=== PATIENT | male | born 1940 | race Caucasian/White ===

== ENCOUNTER → 2017-10-14 13:22 | Outpatient (CLI) | payer MEDICARE, SELFPAY | PROVIDERS: PCP Family Medicine; Visit Provider Urology | DX: C61 Malignant neoplasm of prostate (principal) | CPT/HCPCS: 36415; 84153 ==

== ENCOUNTER → 2018-01-20 09:52 | Outpatient (CLI) | payer MEDICARE, SELFPAY ==
[2018-01-20 11:18] LABS: Testosterone 15.2 ng/dL (71.8-623)
== END ==
PROVIDERS: PCP Family Medicine; Visit Provider Urology
DX: C61 Malignant neoplasm of prostate (principal)
CPT/HCPCS: 36415; 84153; 84403

== ENCOUNTER → 2018-02-06 10:12 | Outpatient (CLI) | payer MEDICARE, SELFPAY ==
--- NOTE | 2018-02-06 | DI.RAD.S_ITS ---
PROCEDURE: XR CERVICAL SPINE 4V OR 5V INDICATIONS: NECK PAIN TECHNIQUE: 5 views of the cervical spine were acquired. COMPARISON: None. FINDINGS: Bones: No fractures or dislocations to the C7 level. Mild levocurvature. Diffuse facet arthropathy. Moderate narrowing of the C5-C6 and C6-C7 disc spaces. No suspicious bony lesions. There is limited range of motion between flexion and extension however no evidence of abnormal motion Soft tissues: Prevertebral soft tissues are normal in thickness. IMPRESSION: Multilevel mid to lower cervical disc degeneration and diffuse facet arthropathy, most pronounced from C5-C6 and C6-C7. No evidence of abnormal motion with flexion and extension lateral views. Mild levocurvature. Dictated by: Kenneth Del Real M.D. on 02/06/2018 at 13:47 Approved by: Kenneth Del Real M.D. on 02/06/2018 at 13:49
== END ==
PROVIDERS: PCP Student in an Organized Health Care Education/Training Program; Visit Provider Anesthesiology Pain Medicine
DX: M50.322 Other cervical disc degeneration at C5-C6 level (principal); M47.812 Spondylosis without myelopathy or radiculopathy, cervical region
CPT/HCPCS: 72050

== ENCOUNTER → 2018-03-14 08:25 | Outpatient (CLI) | payer MEDICARE, SELFPAY ==
--- NOTE | 2018-03-14 08:26 | DI.US.S_ITS ---
PROCEDURE: US ABD AORTA ANEURYSM SCREEN INDICATIONS: AAA screen TECHNIQUE: Real time scanning was performed of the aorta and iliac arteries, with image documentation. COMPARISON: None. FINDINGS: Aorta: Proximal aortic diameter measures 2.2 cm. Mid-aorta measures 1.7 cm. Distal aortic diameter is 2.8 cm. Iliac arteries: Right common iliac artery measures 1.1 cm. Left common iliac artery measures 1.2 cm. IMPRESSION: Ectasia of the distal abdominal aorta. 5 year followup recommended. Dictated by: Rajiv FLORES Interpreted: Ciarra Foley MD on 03/14/2018 at 10:10 Approved by: Ciarra Foley M.D. on 03/14/2018 at 11:44
== END ==
PROVIDERS: PCP Student in an Organized Health Care Education/Training Program; Visit Provider Student in an Organized Health Care Education/Training Program
DX: Z13.6 Encounter for screening for cardiovascular disorders (principal); I77.811 Abdominal aortic ectasia; Z87.891 Personal history of nicotine dependence
CPT/HCPCS: 76706

== ENCOUNTER → 2018-07-21 08:12 | Outpatient (CLI) | payer MEDICARE, SELFPAY ==
[2018-07-21 09:24] LABS: Alanine Aminotransferase 26 IU/L (21-72); Albumin 3.9 g/dL (3.5-5.0); Albumin Globulin Ratio 1.4 (1.0-2.8); Alkaline Phosphatase 80 U/L (38-126); Aspartate Aminotransferase 21 IU/L (17-59); BUN Creatinine Ratio 12.2 (6-22); Bilirubin Total 0.3 mg/dL (0.2-1.3); Blood Urea Nitrogen 11 mg/dL (9-20); Carbon Dioxide 25 mmol/L (22-32); Chloride 105 mmol/L (98-107); Cholesterol 201 mg/dL (140-199); Estimated Glomerular Filt Rate > 60.0 mL/min (>60); Globulin 2.8 g/dL (1.7-4.1); Glucose 92 mg/dL (80-110); HDL Cholesterol 26 mg/dL (40-60); HEMOLYSIS < 15 (0-50); LDL Cholesterol Calculated 98 mg/dL (<100); Sodium 139 mmol/L (137-145); Total Protein 6.7 g/dL (6.3-8.2); Triglycerides 387 mg/dL (35-150)
[2018-07-21 09:47] LABS: Thyroid Stimulating Hormone 0.95 uIU/mL (0.47-4.68)
== END ==
PROVIDERS: Family Provider Student in an Organized Health Care Education/Training Program; PCP Student in an Organized Health Care Education/Training Program; Visit Provider Internal Medicine Cardiovascular Disease
DX: I10 Essential (primary) hypertension (principal); E78.2 Mixed hyperlipidemia
CPT/HCPCS: 36415; 80053; 80061; 84443

== ENCOUNTER → 2018-07-25 07:58 | Outpatient (CLI) | payer MEDICARE, SELFPAY ==
--- NOTE | 2018-07-25 08:00 | DI.US.S_ITS ---
PROCEDURE: US ARTERIAL DUPLEX LE BI INDICATIONS: PERIPHERAL ARTERY DISEASE. RIGHT FEMORAL-POPLITEAL BYPASS TECHNIQUE: Color and pulse Doppler interrogation was performed of both lower extremity arterial systems, with image documentation. COMPARISON: None. FINDINGS: Right lower extremity: Common femoral artery: 82 cm/sec, with biphasic flow. Deep femoral artery: 112 cm/sec, with biphasic flow. Proximal superficial femoral artery: 39 cm/sec, with monophasic flow. Mid superficial femoral artery: 50 cm/sec, with monophasic flow. Distal superficial femoral artery: 48 cm/sec, with monophasic flow proximal to distal SFA stent, which is occluded. Popliteal artery: Retrograde flow proximal to the femoropopliteal bypass graft Posterior tibial artery: 25 cm/sec, with biphasic flow. Occludes above ankle Anterior tibial artery/dorsalis pedis: 58 cm/sec, with biphasic flow. Femoropopliteal bypass graft: Widely patent with triphasic flow Landsi-scale imaging description: See femoropopliteal bypass graft is widely patent. There is excellent flow to the ankle through the anterior tibial artery. The posterior tibial artery occludes above the ankle. The [place] SFA has dampened flow to the level of an occluded distal SFA stent. Left lower extremity: Common femoral artery: 73 cm/sec, with biphasic flow. Deep femoral artery: 91 cm/sec, with biphasic flow. Proximal superficial femoral artery: 67 cm/sec, with increased to 153 cm/s, indicating a greater than 50% stenosis, with biphasic flow. Mid superficial femoral artery: 100 cm/sec, with biphasic flow. Distal superficial femoral artery: 65 cm/sec, with biphasic flow. Popliteal artery: 43 cm/sec, with biphasic flow. Posterior tibial artery: 19 cm/sec, with biphasic flow. Occludes above the ankle. Anterior tibial artery/dorsalis pedis: 23 cm/sec, with biphasic flow. Landis-scale imaging description: There is a greater than 50% proximal SFA stenosis. The posterior tibial is occluded above the ankle. The anterior tibial is patent throughout. IMPRESSION: 1. Right lower extremity runoff: No evidence of significant inflow stenosis. Negative SFA occludes at the distal thigh at the level of an occluded stent. Femoropopliteal bypass graft is widely patent. The anterior tibial is widely patent to feed the foot. The posterior tibial occludes above the ankle. 2. Left lower extremity runoff: No evidence of significant inflow stenosis. Greater than 50% proximal SFA stenosis. Patent anterior tibial to feed the foot. Posterior tibial occludes above the ankle. Comment: If this patient has significant lifestyle limiting left calf claudication the Interventional Radiologists (doctors Zora Cordero, and Michele) at [facility] would be happy to see this patient in consultation. This could be scheduled through [facility] diagnostic imaging scheduling service to consider percutaneous treatment. Dictated by: Ricco Bautista M.D. on 07/25/2018 at 17:01 Approved by: Ricco Bautista M.D. on 07/25/2018 at 17:17
--- NOTE | 2018-07-25 10:01 | DI.US.S_ITS ---
PROCEDURE: US RETROPERITONEAL COMP INDICATIONS: FOLLOW UP ABDOMINAL AORTIC ANEURYSM SCREENING 2017 TECHNIQUE: Real-time scanning was performed of the aorta, with image documentation. COMPARISON: None. FINDINGS: Aorta: Proximal abdominal aorta measures 2.3 cm in AP diameter. Midabdominal aorta measures 2.1 cm in AP diameter. Distal abdominal aorta measures 3 x 3.4 cm in its largest AP and transverse diameters compared to 2.8 x 3.5 cm on previous study. This involves distal 3.9 cm segment of infrarenal abdominal aorta. Intramural thrombus within the distal abdominal aorta is seen. No periaortic fluid collection. Iliac arteries: Proximal common iliac arteries are normal in caliber at 2.5 cm or less. IMPRESSION: Fusiform infrarenal abdominal aortic aneurysm measures up to 3 cm in largest AP diameter on the current study, slightly increased since 2.8 cm on previous study. Intramural thrombus within the aneurysmal sac is seen. No evidence of rupture. Dictated by: Jose F Teague M.D. on 07/25/2018 at 12:48 Approved by: Jose F Teague M.D. on 07/25/2018 at 12:50
== END ==
LOC: US 08:00
PROVIDERS: Family Provider Student in an Organized Health Care Education/Training Program; PCP Student in an Organized Health Care Education/Training Program; Visit Provider Internal Medicine Cardiovascular Disease
DX: I71.4 Abdominal aortic aneurysm, without rupture (principal); C61 Malignant neoplasm of prostate; I70.401 Unspecified atherosclerosis of autologous vein bypass graft(s) of the extremities, right leg; I70.203 Unspecified atherosclerosis of native arteries of extremities, bilateral legs
CPT/HCPCS: 36415; 76770; 84153; 93925

== ENCOUNTER → 2018-07-25 10:20 | Outpatient (CLI) | payer MEDICARE, SELFPAY | PROVIDERS: Family Provider Student in an Organized Health Care Education/Training Program; PCP Student in an Organized Health Care Education/Training Program; Visit Provider Urology | DX: C61 Malignant neoplasm of prostate (principal) | CPT/HCPCS: 36415; 84153 ==

== ENCOUNTER → 2018-07-31 11:12 | Outpatient (CLI) | payer MEDICARE, SELFPAY ==
--- NOTE | 2018-07-31 | DI.CT.S_ITS ---
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 ELEVATED PSA, post prostatectomy 5 years ago. Recent PSA elevation. TECHNIQUE: After the administration of oral and intravenous contrast, 5 mm thick sections acquired from the diaphragms to the symphysis. 5 mm thick coronal and sagittal reformats were performed. For radiation dose reduction, the following was used: automated exposure control, adjustment of mA and/or kV according to patient size. COMPARISON: [facility], CT, ABDOMEN/PELVIS WITH CONTRAST, 09/28/2015, 9:46. FINDINGS: Image quality: Excellent. ABDOMEN: Lung bases: Lung bases are clear. Heart size is normal. Descending thoracic aorta is mildly aneurysmal measuring 3.2 cm in AP diameter. Solid organs: Liver is normal in size and enhancement. Gallbladder is normal. No intrahepatic biliary dilatation. The extrahepatic common duct is mildly dilated measuring 10 mm, but tapering to the pancreatic head. The main pancreatic duct is mildly dilated measuring up to 5 mm in the pancreatic head. Pancreas enhances normally. Occasional glandular calcifications. Spleen is normal in size and enhancement. No adrenal nodules. Kidneys are normal in size and enhancement, without hydronephrosis. Subcentimeter left medullary cyst. Peritoneum and bowel: Marked sigmoid diverticulosis. Mild descending colon diverticular disease. Stomach, small bowel, and colon loops are otherwise normal. No free fluid or air. Nodes and vessels: No retroperitoneal or mesenteric adenopathy. Mild mixed calcified and noncalcified abdominal aortic atherosclerosis. Fusiform distal abnormal aortic aneurysm measuring 3.2 cm in greatest AP diameter with eccentric noncalcified mural thrombus. Miscellaneous: No ventral hernias. PELVIS: Genitourinary: Surgical changes of prostatectomy. Beam hardening artifact from surgical clips. Given this limitation, no visible soft tissue masses along the pelvic floor. Decompressed urinary bladder without obvious mass. Miscellaneous: No inguinal hernias or adenopathy. Dilatation of the superficial femoral artery origins suggesting anastomosis site. There are overlying surgical changes. Bones: Interval development of a rounded mildly sclerotic lesion in the T11 vertebral body measuring 3.2 cm.. No vertebral body compression fractures. IMPRESSION: 1. Interval development of a rounded sclerotic bone lesion in T11. In the face of rising PSA, this is suspicious for metastatic disease. 2. Surgical changes of prostatectomy without visible soft tissue recurrence or soft tissue metastasis. 3. Interval development of mild extrahepatic biliary dilatation. This is nonspecific. Correlate with LFTs. 4. Mild, chronic pancreatic ductal dilatation and coarse glandular calcifications suggests chronic pancreatitis. 5. Enlargement of mild distal abdominal aortic aneurysm, now with a partial mural thrombus. Dictated by: Erika Malik M.D. on 07/31/2018 at 15:46 Approved by: Erika Malik M.D. on 07/31/2018 at 16:07
== END ==
PROVIDERS: Family Provider Student in an Organized Health Care Education/Training Program; PCP Student in an Organized Health Care Education/Training Program; Visit Provider Urology
DX: D49.59 Neoplasm of unspecified behavior of other genitourinary organ (principal); R97.21 Rising PSA following treatment for malignant neoplasm of prostate; M89.9 Disorder of bone, unspecified; K83.8 Other specified diseases of biliary tract; K86.89 Other specified diseases of pancreas; I71.4 Abdominal aortic aneurysm, without rupture
CPT/HCPCS: 74177; Q9967

== ENCOUNTER → 2018-08-05 08:42 | Outpatient (CLI) | payer MEDICARE, SELFPAY ==
--- NOTE | 2018-08-05 | DI.NM.S_ITS ---
PROCEDURE: TX BONE SCAN WHOLE BODY RADIOPHARMACEUTICAL: 20.90 mCi Tc-99m MDP IV. INDICATIONS: Neoplasm of unspecified behavior of other genitourinary the prostate cancer. TECHNIQUE: Delayed whole-body scintigrams were obtained approximately 3-4 hours after intravenous injection of radiotracer. Anterior and posterior views were acquired from vertex to feet. . COMPARISON: [facility], CT, CT ABDOMEN PELVIS W CON, 07/31/2018, 11:57. [facility], [place], BONE SCAN WHOLE BODY, 05/09/2016, 13:21. FINDINGS: Focus of intense radiotracer uptake noted in the T11 vertebral body concerning for metastatic disease. Relatively subtle radiotracer uptake noted in the lower cervical spine, and the shoulders bilaterally which is unchanged compared to prior examination and is compatible with osteoarthritis. No areas of photopenia identified in the osseous skeleton. No abnormal soft tissue uptake. Activity in kidneys is normal and symmetric. 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 Dictated by: Ariana Oconnor MD, PhD on 08/05/2018 at 14:03 Approved by: Ariana Oconnor MD, PhD on 08/05/2018 at 14:06
== END ==
PROVIDERS: Family Provider Student in an Organized Health Care Education/Training Program; PCP Student in an Organized Health Care Education/Training Program; Visit Provider Urology
DX: D49.59 Neoplasm of unspecified behavior of other genitourinary organ (principal); C79.51 Secondary malignant neoplasm of bone
CPT/HCPCS: 78306; A9503

== ENCOUNTER → 2018-10-22 06:52 | Outpatient (CLI) | payer MEDICARE, SELFPAY ==
[2018-10-22 08:56] LABS: Cholesterol 151 mg/dL (140-199); HDL Cholesterol 33 mg/dL (40-60); LDL Cholesterol Calculated 65 mg/dL (<100); Triglycerides 263 mg/dL (35-150)
== END ==
PROVIDERS: Family Provider Student in an Organized Health Care Education/Training Program; PCP Student in an Organized Health Care Education/Training Program; Visit Provider Internal Medicine Cardiovascular Disease
DX: E78.1 Pure hyperglyceridemia (principal)
CPT/HCPCS: 36415; 80061

== ENCOUNTER → 2018-12-03 12:05 | Outpatient (CLI) | payer MEDICARE, SELFPAY ==
[2018-12-03 12:13] LABS: Bacteria Urine None Seen
[2018-12-03 12:27] LABS: Appearance Urine UA CLEAR; Bilirubin Urine UA NEGATIVE (NEGATIVE); Color Urine UA YELLOW; Glucose Urine UA NEGATIVE (Negative); Ketones Urine UA NEGATIVE (NEGATIVE); Leukocyte Esterase Urine UA NEGATIVE (NEGATIVE); Nitrite Urine UA NEGATIVE (Negative); Occult Blood Urine UA TRACE-INTACT (Negative); Protein Urine UA NEGATIVE (Negative); Urobilinogen Urine UA 0.2 E.U./dL (0.2)
[2018-12-03 12:57] LABS: RBC Urine 1-5/HPF (0-5/HPF)
[2018-12-03 12:58] LABS: Culture Indicated Urine Cult Not Indicated; Squamous Epithelial Cell Urine 0-1 /HPF (0-5/HPF)
== END ==
PROVIDERS: PCP Student in an Organized Health Care Education/Training Program; Visit Provider Student in an Organized Health Care Education/Training Program
DX: N23 Unspecified renal colic (principal)
CPT/HCPCS: 81001

== ENCOUNTER 2018-12-28 04:41 | Emergency (ER) | payer MEDICARE, SELFPAY ==
[2018-12-28] VITALS (12 sets, daily range): BP systolic 130–189; BP diastolic 55–95; PULSE 53–80; RESP 15–22; O2SAT 95–100
--- NOTE | 2018-12-28 04:44 | ED_ITS ---
HPI - Allergic Reaction <Mimi Connolly DO - Last Filed: 12/28/18 07:13> General Chief complaint: Allergic Reaction Stated complaint: Swelling tongue Time Seen by Provider: 12/28/18 04:44 Source: patient Mode of arrival: ambulatory Limitations: no limitations History of Present Illness HPI narrative: 78-year-old male comes to the emergency department with complaint of swelling of his tongue. Patient states that he woke up this morning several minutes before he came in and noted the swelling. He has a little bit of difficulty with speech. He feels like there is a little bit underneath the tongue. Patient denies any swelling in the neck. He does take lisinopril, he has been taking for several years. He does not have any other medications other than he has been take leuprolide for prostate cancer. He states that he takes medication for blood pressure, prostate cancer to which he states was treated with radiation and prostatectomy, and states that he had a stent placed in his right leg. He takes aspirin daily. Patient denies any other surgeries. He denies any known allergies to medications or foods, denies any environmental allergies. Patient states that he does smoke. The patient drove himself today. Related Data Home Medications Medication Instructions Recorded Confirmed abiraterone 500 mg tablet 1,000 mg PO QAM 12/03/18 12/03/18 leuprolide (3 month) 11.25 mg (3 11.25 mg IM [id number] 12/03/18 month) intramuscular syringe kit Previous Rx's Medication Instructions Recorded hydrocodone 10 mg-acetaminophen 1 tab PO Q4H PRN #1 tab 03/03/18 325 mg tablet carvedilol 6.25 mg tablet 6.25 mg PO BID #180 tab 12/04/18 lisinopril 20 mg tablet 20 mg PO DAILY #90 tab 12/04/18 Allergies Allergy/AdvReac Type Severity Reaction Status Date / Time No Known Drug Allergies Allergy Verified 12/03/18 11:49 Review of Systems <DO Daisy Stewart Last Filed: 12/28/18 07:13> ENT Ears, Nose, Mouth, and Throat: Denies neck pain, Denies sore throat, Denies throat swelling and Reports tongue swelling Cardiovascular Cardiovascular: Denies chest pain, Denies syncope, Denies pedal edema, Denies irregular heart rhythm, Denies dyspnea and Denies dyspnea on exertion Respiratory Respiratory: Denies chest congestion, Denies cough, Denies dyspnea, Denies dyspnea on exertion, Denies stridor and Denies wheezing Gastrointestinal Gastrointestinal: Denies abdominal pain, Denies change in bowel habits, Denies diarrhea, Denies nausea and Denies vomiting Musculoskeletal Musculoskeletal: Denies neck pain Neurologic Neurologic: Denies syncope Allergic/Immunologic Allergic/Immunologic: Denies throat swelling, Reports tongue swelling and Denies wheezing PFSH <Mimi Connolly DO - Last Filed: 12/28/18 07:13> Medical History Essential hypertension (Chronic) Hyperlipidemia (Chronic) Peripheral vascular disease (Chronic) Prostate cancer (Resolved 2012) Vertigo (Chronic) Surgical History History of radical retropubic prostatectomy (Resolved 12/30/12) Family History (Updated 04/09/18 @ 14:48 by Gaviota Kennedy) Father Gastric cancer Mother Ruptured abdominal aortic aneurysm (AAA) Heart disease Arthritis Sister No problems noted. Sister Heart disease Sister Hepatitis C Son No problems noted. Daughter No problems noted. Daughter No problems noted. Daughter No problems noted. Grandfather Cancer Grandmother Cancer Grandfather Cancer Heart disease Grandmother Cancer Heart disease Social History Smoking Status: Current every day smoker alcohol intake: current (Socially) substance use type: does not use Family History Father Gastric cancer Mother Ruptured abdominal aortic aneurysm (AAA) Heart disease Arthritis Sister No problems noted. Sister Heart disease Sister Hepatitis C Son No problems noted. Daughter No problems noted. Daughter No problems noted. Daughter No problems noted. Grandfather Cancer Grandmother Cancer Grandfather Cancer Heart disease Grandmother Cancer Heart disease Social History Smoking Status: Current every day smoker alcohol intake: current (Socially) substance use type: does not use Exam <Mimi Connolly DO - Last Filed: 12/28/18 07:13> Narrative Exam Narrative: GEN: well nourished, well appearing male, alert and oriented x 3, patient appears to be in mild distress. HEENT: Atraumatic, pupils are equal round reactive to light, extraocular movements are intact, nares are clear, Throat is without any exudates, erythema, tonsillar enlargement or uvular deviation, patient has swelling particularly of the left side of his tongue. No swelling of the lips or inner cheeks noted. Patient has mildly disarthric speech, no muffled voice, no stridor. HEART: Regular rate and rhythm without murmur, clicks, rubs. LUNGS:Lungs clear to auscultation, no wheezes, rales, crackles, chest moves symmetrically ABD:bowel sounds normal, soft, non-tender, no guarding, rebound, rigidity, no masses noted, no hepatosplenomegaly MSCL: Non-tender, no muscle atrophy, muscles strength 5/5 upper and lower extremities, full range of motion, normal gait NEURO:CN 2-12 intact, sensation normal Initial Vital Signs Initial Vital Signs: Vital Signs Pulse Rate 76 12/28/18 04:43 Respiratory Rate 20 12/28/18 04:43 Blood Pressure 188/79 H 12/28/18 04:43 Pulse Oximetry 98 12/28/18 04:43 <Boni Juarez, DO - Last Filed: 12/28/18 07:59> Initial Vital Signs Initial Vital Signs: Vital Signs Pulse Rate 76 12/28/18 04:43 Respiratory Rate 20 12/28/18 04:43 Blood Pressure 188/79 H 12/28/18 04:43 Pulse Oximetry 98 12/28/18 04:43 Course <Mimi Connolly, DO - Last Filed: 12/28/18 07:13> Orders Ordered: Discontinued Medications Diphenhydramine HCl (Benadryl) 50 mg IV NOW ONE Stop: 12/28/18 04:45 Last Admin: 12/28/18 04:53 Dose: 50 mg Documented by: TONG Epinephrine (Epinephrine Racemic) 0.5 ml INH NOW ONE Stop: 12/28/18 05:30 Last Admin: 12/28/18 05:36 Dose: 0.5 ml Documented by: MELANIE Epinephrine HCl (Adrenalin) 0.5 mg IM NOW ONE Stop: 12/28/18 04:45 Last Admin: 12/28/18 04:51 Dose: 0.5 mg Documented by: TONG Famotidine (Pepcid) 20 mg in 50 mls @ 200 mls/hr IV NOW ONE Stop: 12/28/18 04:58 Last Infusion: 12/28/18 05:10 Dose: 0 mls/hr Documented by: Admin: 12/28/18 04:50 Dose: 200 mls/hr Documented by: TONG Sodium Chloride (Normal Saline 0.9%) 1,000 mls @ 1,000 mls/hr IV BOLUS ONE Stop: 12/28/18 05:43 Last Infusion: 12/28/18 06:02 Dose: 0 mls/hr Documented by: Admin: 12/28/18 04:50 Dose: 1,000 mls/hr Documented by: TONG Methylprednisolone (Solu-Medrol 125 Mg Vial) 125 mg IV NOW ONE Stop: 12/28/18 04:45 Last Admin: 12/28/18 04:53 Dose: 125 mg Documented by: TONG Vital Signs Vital signs: Vital Signs - 8 hr 12/28/18 04:43 12/28/18 05:24 12/28/18 05:32 Pulse Rate 76 75 70 Respiratory Rate 20 18 16 Blood Pressure 188/79 H Blood Pressure [Right Arm] 159/95 H 156/94 H Pulse Oximetry 98 100 99 12/28/18 05:34 12/28/18 05:38 12/28/18 05:42 Pulse Rate 71 53 L 75 Respiratory Rate 15 16 20 Blood Pressure Blood Pressure [Right Arm] 170/94 H 170/94 H Pulse Oximetry 100 99 100 12/28/18 05:50 12/28/18 06:00 12/28/18 06:17 Pulse Rate 75 71 78 Respiratory Rate 22 15 18 Blood Pressure Blood Pressure [Right Arm] 189/79 H 179/87 H 188/90 H Pulse Oximetry 98 98 98 12/28/18 06:31 12/28/18 06:56 Pulse Rate 75 80 Respiratory Rate 20 20 Blood Pressure Blood Pressure [Right Arm] 135/63 130/55 L Pulse Oximetry 95 98 <Boni Juarez DO - Last Filed: 12/28/18 07:59> Orders Ordered: Discontinued Medications Diphenhydramine HCl (Benadryl) 50 mg IV NOW ONE Stop: 12/28/18 04:45 Last Admin: 12/28/18 04:53 Dose: 50 mg Documented by: TONG Epinephrine (Epinephrine Racemic) 0.5 ml INH NOW ONE Stop: 12/28/18 05:30 Last Admin: 12/28/18 05:36 Dose: 0.5 ml Documented by: MELANIE Epinephrine HCl (Adrenalin) 0.5 mg IM NOW ONE Stop: 12/28/18 04:45 Last Admin: 12/28/18 04:51 Dose: 0.5 mg Documented by: TONG Famotidine (Pepcid) 20 mg in 50 mls @ 200 mls/hr IV NOW ONE Stop: 12/28/18 04:58 Last Infusion: 12/28/18 05:10 Dose: 0 mls/hr Documented by: Admin: 12/28/18 04:50 Dose: 200 mls/hr Documented by: TONG Sodium Chloride (Normal Saline 0.9%) 1,000 mls @ 1,000 mls/hr IV BOLUS ONE Stop: 12/28/18 05:43 Last Infusion: 12/28/18 06:02 Dose: 0 mls/hr Documented by: Admin: 12/28/18 04:50 Dose: 1,000 mls/hr Documented by: TONG Methylprednisolone (Solu-Medrol 125 Mg Vial) 125 mg IV NOW ONE Stop: 12/28/18 04:45 Last Admin: 12/28/18 04:53 Dose: 125 mg Documented by: TONG Vital Signs Vital signs: Vital Signs - 8 hr 12/28/18 04:43 12/28/18 05:24 12/28/18 05:32 Pulse Rate 76 75 70 Respiratory Rate 20 18 16 Blood Pressure 188/79 H Blood Pressure [Right Arm] 159/95 H 156/94 H Pulse Oximetry 98 100 99 12/28/18 05:34 12/28/18 05:38 12/28/18 05:42 Pulse Rate 71 53 L 75 Respiratory Rate 15 16 20 Blood Pressure Blood Pressure [Right Arm] 170/94 H 170/94 H Pulse Oximetry 100 99 100 12/28/18 05:50 12/28/18 06:00 12/28/18 06:17 Pulse Rate 75 71 78 Respiratory Rate 22 15 18 Blood Pressure Blood Pressure [Right Arm] 189/79 H 179/87 H 188/90 H Pulse Oximetry 98 98 98 12/28/18 06:31 12/28/18 06:56 Pulse Rate 75 80 Respiratory Rate 20 20 Blood Pressure Blood Pressure [Right Arm] 135/63 130/55 L Pulse Oximetry 95 98 [facility] - Allergic Reaction <Mimi C Mohsen, DO - Last Filed: 12/28/18 07:13> [facility] Narrative Medical decision making narrative: Patient received anaphylaxis medications and one dose of racemic epi, although suspect joan inhibitor induced angioedema, on recheck no improvement, no worsening. On recheck patient states feels mildly improved. He is not having any other airway difficulties at this time, no difficulties with swallowing. Patient and I discussed plan to monitor in ED if continued improvement may d/c home and stop lisinopril, if no improvement plan for admission for observation and if any worsening plan for intubation. Patient is comfortable with this plan, his Radha also called and is aware of the plan. Naomi his nurse was given 's phone number. Patient signed out to Dr. Juarez with plan to continue to monitor airway per plan above. <Boni Juarez, DO - Last Filed: 12/28/18 07:59> [facility] Narrative Medical decision making narrative: Dr Juarez: Received turned over from Dr Connolly. Reviewed patient's history and physical. The patient's note. Perform my own independent exam. Patient has been observed here in the emergency department for little over 3 hours. He has had no respiratory distress. He states that he feels like his symptoms are at least 50% better than when he came in and seemed to be improving even over the past hour. He is tolerating his own secretions. Has had no respiratory distress. Is tolerating oral intake however it is somewhat difficult for him to swallow. We did discuss his symptoms. I do suspect that his symptoms are angioedema secondary to the lisinopril. He was instructed to stop this medication. We did discuss discharge home versus being admitted to the hospital for an airway watch. Patient states that he feels like he can go home. He feels like that he would be able to maintain his hydration. 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 Given his history and physical I do suspect that this is angioedema so I feel that sending him home on a course of steroids is going to be somewhat unhelpful. We will discharge the patient home. He was given return precautions. He understands importance of coming back if his symptoms start to worsen. He will contact his primary doctor about his symptoms and to start on another medication for his blood pressure. Discharge Plan Departure Patient Disposition: Home Clinical Impression: Angioedema Qualifiers: Encounter type: initial encounter Qualified Code(s): T78.3XXA - Angioneurotic edema, initial encounter Instructions: DI for Angioedema Activity Restrictions/Additional Instructions: You need to stop the lisinopril. Contact your primary provider to discuss an alternative medication for your blood pressure. Continue all of your other medications. Return to the emergency department for any new or worsening symptoms. Prescriptions: No Action hydrocodone-acetaminophen 10-325 mg tablet 1 tab PO Q4H PRN (Reason: pain) Qty: 1 RF: 0 Zytiga 500 mg tablet 1,000 mg PO QAM RF: 0 Lupron Depot (3 month) 11.25 mg syringe kit 11.25 mg IM [id number] RF: 0 lisinopril 20 mg tablet 20 mg PO DAILY Qty: 90 RF: 3 carvedilol [Coreg] 6.25 mg tablet 6.25 mg PO BID Qty: 180 RF: 3 Referrals: Osorio Anaya MD [Primary Care Provider] - ED Sign-out <Mimi Connolly DO - Last Filed: 12/28/18 07:13> Sign Out Provider Sign Out Attestation: Patient Sign Out occurred on 12/28/18 at 07:06. Patient's care was discussed, and care was transferred from Mimi Connolly DO to Boni Juarez DO.
[2018-12-28] MEDS: SODIUM CHLORIDE 0.9% 1,000 ML 1000 ML IV (04:50)
[2018-12-28] MEDS: FAMOTIDINE 20 MG/50 ML PIGGYBACK 200 MG IV (04:50)
[2018-12-28] MEDS: EPINEPHrine 1 MG/ML AMPUL 0.5 MG IM (04:51)
[2018-12-28] MEDS: methylPREDNISolone 125 MG/2 ML VIAL IV (04:53)
[2018-12-28] MEDS: diphenhydrAMINE 50 MG/ML VIAL IV (04:53)
[2018-12-28] MEDS: RACEPINEPHRINE 0.5 ML NEB INH (05:36)
--- NOTE | 2018-12-28 05:46 | PC.NURSE ---
pt reports no change, no trouble breathing, lungs clear, left side of tongue remains swollen, pt is A/O, moved to room 1 for possible RSI if worsens
--- NOTE | 2018-12-28 05:58 | PC.NURSE ---
pt reports feeling of jitteriness, restless/can't get comfortable, reassured him that this was most likely due to the meds he'd been given
== END 2018-12-28 08:12 | disposition home or self-care (01) ==
PROVIDERS: Emergency Provider Emergency Medicine; PCP Student in an Organized Health Care Education/Training Program
DX: T78.3XXA Angioneurotic edema, initial encounter (principal)
CPT/HCPCS: 94640; 96361; 96365; 96372; 96375; 99285; J0171; J1200; J2930

== ENCOUNTER → 2019-05-19 12:51 | Outpatient (CLI) | payer MEDICARE, SELFPAY ==
[2019-05-19 14:02] LABS: Add Manual Diff / Slide Review NO; Basophils Absolute Auto 100 /uL (0-100); Basophils Percent Auto 0.9 % (0-2); Eosinophils Absolute Auto 200 /uL (0-450); Eosinophils Percent Auto 2.4 % (2-4); Hematocrit 38.7 % (41-53); Hemoglobin 13.7 g/dL (13.5-17.5); Lymphocytes Absolute Auto 1000 /uL (1100-4500); Lymphocytes Percent Auto 13.2 % (25-40); Mean Corpuscular HGB Conc 35.5 % (30-36); Mean Corpuscular Hemoglobin 31.3 PG (26-34); Mean Corpuscular Volume 88.2 fL (80-100); Monocytes Absolute Auto 700 /uL (0-900); Monocytes Percent Auto 9.5 % (3-14); Neutrophils Absolute Auto 5400 /uL (1500-7000); Platelet Count 191 X10^3/uL (150-400); Red Blood Cell Count 4.38 X10^6/uL (4.5-5.9); Red Cell Distribution Width 13.9 % (11.6-14.8); White Blood Cell Count 7.4 X10^3/uL (4.5-11.0)
[2019-05-19 14:05] LABS: HEMOLYSIS < 15 (0-50)
[2019-05-19 14:13] LABS: Alanine Aminotransferase 14 IU/L (<50); Albumin 4.4 g/dL (3.5-5.0); Albumin Globulin Ratio 1.4 (1.0-2.8); Alkaline Phosphatase 90 U/L (38-126); Aspartate Aminotransferase 24 IU/L (17-59); BUN Creatinine Ratio 18.6 (6-22); Bilirubin Total 0.6 mg/dL (0.2-1.3); Blood Urea Nitrogen 13 mg/dL (9-20); Carbon Dioxide 28 mmol/L (22-32); Chloride 106 mmol/L (98-107); Estimated Glomerular Filt Rate > 60.0 mL/min (>60); Globulin 3.2 g/dL (1.7-4.1); Glucose 86 mg/dL (80-110); Potassium 4.1 mmol/L (3.4-5.1); Sodium 141 mmol/L (137-145); Total Protein 7.6 g/dL (6.3-8.2)
[2019-05-19 14:42] LABS: Prostate Specific Antigen < 0.064 ng/mL (0.10-4.00)
[2019-05-19 14:47] LABS: Testosterone 23.2 ng/dL (71.8-623)
== END ==
PROVIDERS: PCP Student in an Organized Health Care Education/Training Program; Visit Provider Internal Medicine Hematology & Oncology
DX: C61 Malignant neoplasm of prostate (principal); C79.51 Secondary malignant neoplasm of bone
CPT/HCPCS: 36415; 80053; 84153; 84403; 85025

== ENCOUNTER → 2019-09-25 09:57 | Outpatient (CLI) | payer MEDICARE, SELFPAY ==
[2019-09-25 11:52] LABS: BUN Creatinine Ratio 19.3 (6-22); Blood Urea Nitrogen 16 mg/dL (9-20); Calcium 9.9 mg/dL (8.4-10.2); Carbon Dioxide 27 mmol/L (22-32); Chloride 103 mmol/L (98-107); Estimated Glomerular Filt Rate > 60.0 mL/min (>60); Glucose 117 mg/dL (80-110); HEMOLYSIS < 15 (0-50); Potassium 3.4 mmol/L (3.4-5.1); Sodium 138 mmol/L (137-145)
== END ==
PROVIDERS: PCP Student in an Organized Health Care Education/Training Program; Referring Provider Internal Medicine Cardiovascular Disease; Visit Provider Internal Medicine Cardiovascular Disease
DX: I10 Essential (primary) hypertension (principal)
CPT/HCPCS: 36415; 80048

== ENCOUNTER 2019-09-25 15:59 | Emergency (ER) | payer MEDICARE, SELFPAY ==
[2019-09-25 16:00] VITALS: BP 143/87; PULSE 87; RESP 18; TEMP 36.8; O2SAT 100; BMI 27.1
--- NOTE | 2019-09-25 16:47 | DI.RAD.S_ITS ---
PROCEDURE: XR CHEST 1V INDICATIONS: chest pain TECHNIQUE: One view of the chest was acquired. COMPARISON: None. FINDINGS: Surgical changes and devices: None. Lungs and pleura: Lungs are clear. No pleural effusions or pneumothorax. Mediastinum: Mediastinal contours appear normal. Heart size is normal. Bones and chest wall: No suspicious bony lesions. Overlying soft tissues appear unremarkable. IMPRESSION: No evidence acute pulmonary process. Dictated by: Ricco Bautista M.D. on 09/25/2019 at 16:34 Approved by: Ricco Bautista M.D. on 09/25/2019 at 16:34
[2019-09-25 16:55] LABS: INR 1.1 (0.9-1.3); Prothrombin Time 12.2 SECONDS (10.1-12.7)
[2019-09-25 16:56] LABS: Add Manual Diff / Slide Review NO; Basophils Absolute Auto 0 /uL (0-100); Basophils Percent Auto 0.5 % (0-2); Eosinophils Absolute Auto 200 /uL (0-450); Hematocrit 40.5 % (41-53); Hemoglobin 14.5 g/dL (13.5-17.5); Lymphocytes Absolute Auto 1100 /uL (1100-4500); Lymphocytes Percent Auto 12.9 % (25-40); Mean Corpuscular HGB Conc 35.8 % (30-36); Mean Corpuscular Hemoglobin 31.5 PG (26-34); Mean Corpuscular Volume 87.9 fL (80-100); Monocytes Absolute Auto 800 /uL (0-900); Monocytes Percent Auto 9.2 % (3-14); Neutrophils Absolute Auto 6400 /uL (1500-7000); Neutrophils Percent Auto 75.4 % (50-75); Platelet Count 184 X10^3/uL (150-400); Red Blood Cell Count 4.61 X10^6/uL (4.5-5.9); Red Cell Distribution Width 14.9 % (11.6-14.8); White Blood Cell Count 8.4 X10^3/uL (4.5-11.0)
[2019-09-25 16:57] LABS: PTT Partial Thromboplastin Tim 31 SECONDS (26.4-36.2)
[2019-09-25 16:58] LABS: Alanine Aminotransferase 15 IU/L (<50); Albumin 4.2 g/dL (3.5-5.0); Albumin Globulin Ratio 1.4 (1.0-2.8); Alkaline Phosphatase 88 U/L (38-126); Aspartate Aminotransferase 27 IU/L (17-59); BUN Creatinine Ratio 20.7 (6-22); Bilirubin Total 0.7 mg/dL (0.2-1.3); Blood Urea Nitrogen 18 mg/dL (9-20); Carbon Dioxide 28 mmol/L (22-32); Chloride 103 mmol/L (98-107); Creatine Kinase 40 U/L (55-170); Estimated Glomerular Filt Rate > 60.0 mL/min (>60); Globulin 3.1 g/dL (1.7-4.1); Glucose 141 mg/dL (80-110); HEMOLYSIS < 15 (0-50); Lipase 135 U/L (23-300); Potassium 4.1 mmol/L (3.4-5.1); Sodium 139 mmol/L (137-145); Total Protein 7.3 g/dL (6.3-8.2)
[2019-09-25 17:10] LABS: Troponin I < 0.012 ng/mL (0.01-0.034)
[2019-09-25 17:30] VITALS: BP 169/109; PULSE 87; RESP 24; O2SAT 93
--- NOTE | 2019-09-25 17:57 | ED_ITS ---
HPI - Dizziness <Heather Blanca PA-C - Last Filed: 09/26/19 00:23> General Chief Complaint: Dizziness Stated Complaint: DIZZY BLOOD PRESSURE IS ALL OVER THE PLACE Time Seen by Provider: 09/25/19 17:29 Source: patient Mode of arrival: Ambulatory Limitations: no limitations History of Present Illness HPI Narrative: This is a 79-year-old gentleman with a history of high blood pressure, chronic tension headaches, peripheral vascular disease, syncope, prostate cancer who presents to the emergency department complaining of dizziness with difficulty walking. He advises he has been doing telemedicine visit with his personal financial advisor, and discussing his blood pressures which have been not consistent over the past couple weeks, they recommended that he come to the emergency department for some additional testing as they do not think that the etiology of his dizziness and difficulty walking is cardiac. He reports he has had a few years of difficulty with balance issues and dizziness, however he feels has been worsening in the last few months and the last few weeks and it has been getting to the point where he feels like he is all over the place when he is walking. He has had a few episodes in the last couple of months with black spots in his vision that he thinks mostly seems to happen with the left eye. He also sometimes says he sees what look like little stars in his vision. These happen at rest. He very rarely feels like he might pass out and feels a little lightheaded, this is not associated with specific activities. He reports he has been trying to drink more fluids lately as he thinks that he is not hydrated enough. He also had some recent changes to his blood pressure medication, he was started on a new medication for hypertension a little over 2 weeks ago and he did really poorly on it and it made me feel really bad so he stopped taking it told his personal financial advisor he was not going to take it then last week he started on a new blood pressure medication (a thiazide) and he has been doing much better with this medication but he has been monitoring his blood pressures and they did not seem to be consistent. He says that after speaking with his personal financial advisor today about his blood pressure concerns the personal financial advisor advised him to come to the emergency department. However while here in the ED says that he really feels his blood pressures have been fine for the last week since he started his new medication and his bigger concern is his ongoing dizziness and its affect on his ambulation which is chronic for 2+ years. He denies chest pain, abdominal pain, confusion, fever, chills, malaise, shortness of breath, syncope, weakness, nausea, vomiting, diarrhea, constipation or any other symptoms. MD complaint: dizziness and difficulty walking Onset (ago): year(s) (worsening in the last few weeks/months) Timing: gradual onset Description: off-balance and difficulty walking History of similar episodes: Yes Severity: moderate Relieving factors: nothing Exacerbating factors: nothing Associated symptoms: ataxia and vision changes (occasional black spots in vision left sided mostly) Related Data Home Medications Medication Instructions Recorded Confirmed abiraterone 500 mg tablet 1,000 mg PO QAM 12/03/18 09/09/19 leuprolide (3 month) 11.25 mg (3 11.25 mg IM [id number] 12/03/18 09/09/19 month) intramuscular syringe kit carvedilol 12.5 mg tablet 12.5 mg PO BID 09/09/19 09/09/19 Previous Rx's Medication Instructions Recorded hydrocodone 10 mg-acetaminophen 1 tab PO Q4H PRN #1 tab 03/03/18 325 mg tablet olmesartan 40 mg tablet 40 mg PO DAILY #90 tab 07/14/19 amoxicillin 875 mg-potassium 1 tab PO BID #14 tab 09/03/19 clavulanate 125 mg tablet Allergies Allergy/AdvReac Type Severity Reaction Status Date / Time lisinopril Allergy Intermediate angioedema Verified 09/09/19 15:00 clonidine AdvReac Verified 09/25/19 16:17 Review of Systems <Heather Blanca PA-C - Last Filed: 09/26/19 00:23> Review of Systems Narrative: GENERAL: Denies chills, fatigue, malaise, fever, sweats. HEENT: Positive for mild sinus pain for the last 2 weeks (improving), negative for ear pain, sore throat, difficulty swallowing, positive for intermittent dizziness. RESPIRATORY: Denies dyspnea, cough, wheezing, hemoptysis, sputum. CARDIOVASCULAR: Denies chest pain, palpitations, orthopnea, edema, GASTROINTESTINAL: Denies nausea, vomiting, abdominal pain, diarrhea, co nstipation, melena. : Denies dysuria, frequency, incontinence, hematuria, urinary retention. MUSCULOSKELETAL: denies weakness, joint pain, or bony pain SKIN: Denies rash, skin lesions, or other NEUROLOGIC: Denies weakness, headache, numbness, change in speech, confusion, seizures, incoordination, endorses difficulty with balancing while he is walking due to his ?dizziness?. PSYCHIATRIC: No concerning psychosocial issues. 12 point review of systems is negative except for those stated above ROS Unobtainable: All systems reviewed & are unremarkable except as noted in HPI and below Patient History <Heather Blanca PA-C - Last Filed: 09/26/19 00:23> Medical History Essential hypertension (Chronic) Hyperlipidemia (Chronic) Peripheral vascular disease (Chronic) Prostate cancer (Resolved 2012) Vertigo (Chronic) Surgical History History of radical retropubic prostatectomy (Resolved 12/30/12) Family History Father Gastric cancer Mother Ruptured abdominal aortic aneurysm (AAA) Heart disease Arthritis Sister No problems noted. Sister Heart disease Sister Hepatitis C Son No problems noted. Daughter No problems noted. Daughter No problems noted. Daughter No problems noted. Grandfather Cancer Grandmother Cancer Grandfather Cancer Heart disease Grandmother Cancer Heart disease Social History Smoking Status: Current every day smoker alcohol intake: current (Socially) substance use type: does not use Smoking Status: Current every day smoker alcohol intake frequency: 0-2 drinks per day Substance Use Type: does not use Exam <Heather Blanca PA-C - Last Filed: 09/26/19 00:23> Narrative Exam Narrative: GENERAL: 79 year old patient appears younger than stated age. Well-nourished, well-developed patient, in mild distress. HEAD: Atraumatic. Normocephalic. EYES: Pupils equal round and reactive. Extraocular motions intact. No scleral icterus. No nystagmus. No injection or drainage. ENT: Nose without bleeding, purulent drainage. Throat without erythema, tonsillar hypertrophy or exudate. Airway patent. External auditory canal is normal in appearance, tympanic membranes bilaterally are pearly pitt with cone of light visible without erythema or effusion. NECK: Trachea midline. Non tender, no lymphadenopathy is noted. CARDIOVASCULAR: Regular rate and rhythm without murmurs, gallops, or rubs. RESPIRATORY: Clear to auscultation. Breath sounds equal bilaterally. No wheezes, rales, or rhonchi. GASTROINTESTINAL: Abdomen soft, non-tender, nondistended. EXTREMITIES: No edema or joint tenderness. BACK: Nontender without deformity or crepitance. No flank tenderness. NEURO: AOx3. Coordination is intact, cranial nerves are intact, strength is 5/5 bilaterally in upper and lower extremities. Arm drift is negative. SKIN: No rash or erythema of visible areas Initial Vital Signs Initial Vital Signs: Vital Signs Temperature 98.3 F 09/25/19 16:00 Pulse Rate 87 09/25/19 16:00 Respiratory Rate 18 09/25/19 16:00 Blood Pressure 143/87 H 09/25/19 16:00 Pulse Oximetry 100 09/25/19 16:00 <Manav Peterson MD - Last Filed: 09/26/19 04:20> Initial Vital Signs Initial Vital Signs: Vital Signs Temperature 98.3 F 09/25/19 16:00 Pulse Rate 87 09/25/19 16:00 Respiratory Rate 18 09/25/19 16:00 Blood Pressure 143/87 H 09/25/19 16:00 Pulse Oximetry 100 09/25/19 16:00 Course <Heather Blanca PA-C - Last Filed: 09/26/19 00:23> Course Course Narrative: The patient was walked around the department multiple times with the RN and I observed this, patient did not appear to have difficulty walking, walking with a steady gait and was able to walk a straight line, did not appear to have balance issues or weakness, however he did note that he feels like the faster he goes the more his dizziness kicks in and affects his gait. Orders Ordered: ED Orders 09/25/19 16:05 Complete Blood Count AUTO DIFF Stat Comprehensive Metabolic Panel Stat Lipase Stat Partial Thromboplastin Time Stat Prothrombin Time INR Stat Troponin & CK Cardiac Panel Stat 09/25/19 16:47 XR chest 1V Stat EKG-12 Lead Stat Vital Signs Vital signs: Vital Signs - 8 hr 09/25/19 17:30 09/25/19 18:30 09/25/19 19:00 Pulse Rate 87 82 84 Respiratory Rate 24 15 20 Blood Pressure Blood Pressure [Left Arm] 169/109 H 160/96 H 166/90 H Pulse Oximetry 93 99 98 09/25/19 19:42 Pulse Rate 84 Respiratory Rate 16 Blood Pressure 166/90 H Blood Pressure [Left Arm] Pulse Oximetry 97 <Manav Peterson MD - Last Filed: 09/26/19 04:20> Orders Ordered: ED Orders 09/25/19 16:05 Complete Blood Count AUTO DIFF Stat Comprehensive Metabolic Panel Stat Lipase Stat Partial Thromboplastin Time Stat Prothrombin Time INR Stat Troponin & CK Cardiac Panel Stat 09/25/19 16:47 XR chest 1V Stat EKG-12 Lead Stat Vital Signs Vital signs: Vital Signs - 8 hr 09/25/19 17:30 09/25/19 18:30 09/25/19 19:00 Pulse Rate 87 82 84 Respiratory Rate 24 15 20 Blood Pressure Blood Pressure [Left Arm] 169/109 H 160/96 H 166/90 H Pulse Oximetry 93 99 98 09/25/19 19:42 Pulse Rate 84 Respiratory Rate 16 Blood Pressure 166/90 H Blood Pressure [Left Arm] Pulse Oximetry 97 MDM - Dizziness <Heather Blanca PA-C - Last Filed: 09/26/19 00:23> Differential Diagnosis Differential diagnosis: Likely other (vertigo, gait issues) Medical Records Attestation: I reviewed the patient's medical records. Lab Data Attestation: I reviewed the patient's lab results. Result diagrams: 09/25/19 16:05 09/25/19 16:05 Labs: Lab Results 09/25/19 09/25/19 09/25/19 Range/Units 16:05 16:05 16:05 WBC 8.4 (4.5-11.0) X10^3/uL RBC 4.61 (4.5-5.9) X10^6/uL Hgb 14.5 (13.5-17.5) g/dL Hct 40.5 L (41-53) % MCV 87.9 (80-100) fL MCH 31.5 (26-34) PG MCHC 35.8 (30-36) % RDW 14.9 H (11.6-14.8) % Plt Count 184 (150-400) X10^3/uL Neut % (Auto) 75.4 H (50-75) % Lymph % (Auto) 12.9 L (25-40) % [place] % (Auto) 9.2 (3-14) % Eos % (Auto) 2.0 (2-4) % Baso % (Auto) 0.5 (0-2) % Neut # (Auto) 6400 (6123-3470) /uL Lymph # (Auto) 1100 (3467-6466) /uL [place] # (Auto) 800 (0-900) /uL Eos # (Auto) 200 (0-450) /uL Baso # (Auto) 0 (0-100) /uL PT 12.2 (10.1-12.7) SECONDS INR 1.1 (0.9-1.3) APTT 31 (26.4-36.2) SECONDS Sodium 139 (137-145) mmol/L Potassium 4.1 (3.4-5.1) mmol/L Chloride 103 (98-107) mmol/L Carbon Dioxide 28 (22-32) mmol/L BUN 18 (9-20) mg/dL Creatinine 0.87 (0.66-1.25) mg/dL Estimated GFR > 60.0 (>60) mL/min BUN/Creatinine Ratio 20.7 (6-22) Glucose 141 H (80-110) mg/dL Calcium 10.0 (8.4-10.2) mg/dL Total Bilirubin 0.7 (0.2-1.3) mg/dL AST 27 (17-59) IU/L ALT 15 (<50) IU/L Alkaline Phosphatase 88 (38-126) U/L Total Creatine Kinase 40 L (55-170) U/L CK-MB (CK-2) TNP CK-MB (CK-2) Rel Index TNP Troponin I < 0.012 (0.01-0.034) ng/mL Total Protein 7.3 (6.3-8.2) g/dL Albumin 4.2 (3.5-5.0) g/dL Globulin 3.1 (1.7-4.1) g/dL Albumin/Globulin Ratio 1.4 (1.0-2.8) Lipase 135 (23-300) U/L ECG Data Attestation: I personally reviewed and interpreted this ECG as follows: (Normal sinus rhythm with occasional PVCs ventricular rate of 84 P are interval 171 QRS 1 0 to QT 381 P axis 49 R axis -31 T axis 36) Prior ECG tracings: not available for review MDM Narrative Medical decision making narrative: This is a well-appearing 79-year-old with history of hypertension, chronic tension headache, coronary artery disease peripheral vascular disease and prostate cancer who presents to the emergency department complaining of 2 months of dizziness with associated sensation of gait imbalance. Endorses greater than 2 years of similar symptoms, however feels they have been worsening in the last 2 weeks to 2 months. Was initially sent by his personal financial advisor as the patient had been concerned about possible inconsistencies in his blood pressure, however in the ED patient endorsed his blood pressures have been fine since he started new medication 1 week ago, and that he is concerned about his ongoing chronic problems with dizziness and balance issues. While the patient's symptoms are concerning they are chronic; I did not find anything on physical exam or with labs that would suggest an acute issue today that warrants further workup in the emergency department. Differential diagnoses that were considered included CVA, TIA, vertigo, BPPV, arrhythmia, sinus infection, migraine, tension headache. The patient was advised to monitor his symptoms closely, drink plenty of fluids, follow-up with his PCP and personal financial advisor and was provided with emergency return precautions. All questions were answered. <Manav Peterson MD - Last Filed: 09/26/19 04:20> Lab Data Labs: Lab Results 09/25/19 09/25/19 09/25/19 Range/Units 16:05 16:05 16:05 WBC 8.4 (4.5-11.0) X10^3/uL RBC 4.61 (4.5-5.9) X10^6/uL Hgb 14.5 (13.5-17.5) g/dL Hct 40.5 L (41-53) % MCV 87.9 (80-100) fL MCH 31.5 (26-34) PG MCHC 35.8 (30-36) % RDW 14.9 H (11.6-14.8) % Plt Count 184 (150-400) X10^3/uL Neut % (Auto) 75.4 H (50-75) % Lymph % (Auto) 12.9 L (25-40) % [place] % (Auto) 9.2 (3-14) % Eos % (Auto) 2.0 (2-4) % Baso % (Auto) 0.5 (0-2) % Neut # (Auto) 6400 (5440-5814) /uL Lymph # (Auto) 1100 (7333-3616) /uL [place] # (Auto) 800 (0-900) /uL Eos # (Auto) 200 (0-450) /uL Baso # (Auto) 0 (0-100) /uL PT 12.2 (10.1-12.7) SECONDS INR 1.1 (0.9-1.3) APTT 31 (26.4-36.2) SECONDS Sodium 139 (137-145) mmol/L Potassium 4.1 (3.4-5.1) mmol/L Chloride 103 (98-107) mmol/L Carbon Dioxide 28 (22-32) mmol/L BUN 18 (9-20) mg/dL Creatinine 0.87 (0.66-1.25) mg/dL Estimated GFR > 60.0 (>60) mL/min BUN/Creatinine Ratio 20.7 (6-22) Glucose 141 H (80-110) mg/dL Calcium 10.0 (8.4-10.2) mg/dL Total Bilirubin 0.7 (0.2-1.3) mg/dL AST 27 (17-59) IU/L ALT 15 (<50) IU/L Alkaline Phosphatase 88 (38-126) U/L Total Creatine Kinase 40 L (55-170) U/L CK-MB (CK-2) TNP CK-MB (CK-2) Rel Index TNP Troponin I < 0.012 (0.01-0.034) ng/mL Total Protein 7.3 (6.3-8.2) g/dL Albumin 4.2 (3.5-5.0) g/dL Globulin 3.1 (1.7-4.1) g/dL Albumin/Globulin Ratio 1.4 (1.0-2.8) Lipase 135 (23-300) U/L Discharge Plan Departure Patient Disposition: Home Clinical Impression: Vertigo, Balance disorder Discharge Date/Time: 09/25/19 19:43 Instructions: DI for Vertigo, DI for Dizziness-Nonvertigo Activity Restrictions/Additional Instructions: Thank you for allowing us to be part of your care in the emergency department today. We have checked a number of labs as well as your EKG today and done a walking test as well as a thorough physical exam. There is no evidence of an emergent or life threatening illness at this time, but follow up with your doctor in 1-2 days is recommended nonetheless to continue to rule out serious underlying causes of your symptoms. Please call the office for an appointment. Please return to the Emergency Department for any worsening or persistent sym ptoms. Please take medications as directed. I do think that because even though your symptoms are chronic they have been worsening in the past 2 weeks to months it is important that you follow-up with your primary care regarding these and they pay close attention to your symptoms over time and they continue to change or become worse it is important that you talk to someone again about them. I al so recommend that you follow-up with your personal financial advisor, as some of your symptoms do sound possibly heart related. Your EKG and cardiac tracing showed somewhat frequent preventricular contractions which are fairly common, and do not by themselves necessarily account for feeling lightheaded but occasionally they can cause problems if there are multiple in a row. If you develop new or worsening symptoms or anything else of concern to you please do not hesitate to seek medical care or return to the emergency department. Prescriptions: No Action hydrocodone-acetaminophen 10-325 mg tablet 1 tab PO Q4H PRN (Reason: pain) Qty: 1 RF: 0 amoxicillin-pot clavulanate 875-125 mg tablet 1 tab PO BID Qty: 14 RF: 0 olmesartan 40 mg tablet 40 mg PO DAILY Qty: 90 RF: 1 carvedilol 12.5 mg tablet 12.5 mg PO BID RF: 0 Zytiga 500 mg tablet 1,000 mg PO QAM RF: 0 Lupron Depot (3 month) 11.25 mg syringe kit 11.25 mg IM [id number] RF: 0 Referrals: Osorio Anaya MD [Primary Care Provider] -
[2019-09-25 18:30] VITALS: BP 160/96; PULSE 82; RESP 15; O2SAT 99
[2019-09-25 19:00] VITALS: BP 166/90; PULSE 84; RESP 20; O2SAT 98
[2019-09-25 19:42] VITALS: BP 166/90; PULSE 84; RESP 16; O2SAT 97
== END 2019-09-25 19:43 | disposition home or self-care (01) ==
PROVIDERS: Emergency Medicine; Emergency Provider Student in an Organized Health Care Education/Training Program; PCP Student in an Organized Health Care Education/Training Program
DX: R42 Dizziness and giddiness (principal); R07.9 Chest pain, unspecified; I10 Essential (primary) hypertension; G44.209 Tension-type headache, unspecified, not intractable; I25.10 Atherosclerotic heart disease of native coronary artery without angina pectoris
CPT/HCPCS: 36415; 71045; 80048; 80053; 82550; 83690; 84484; 85025; 85610; 85730; 93005; 93010; 99284

== ENCOUNTER 2019-11-03 13:13 | Emergency (ER) | payer MEDICARE, SELFPAY ==
[2019-11-03] VITALS (10 sets, daily range): BP systolic 177–223; BP diastolic 88–118; PULSE 71–83; RESP 13–46; TEMP 36.1; O2SAT 98–100
--- NOTE | 2019-11-03 13:25 | DI.RAD.S_ITS ---
PROCEDURE: XR CHEST 1V INDICATIONS: chest pain TECHNIQUE: One view of the chest was acquired. COMPARISON: [facility], CR, XR CHEST 1V, 09/25/2019, 17:13. FINDINGS: Surgical changes and devices: None. Lungs and pleura: Lungs are clear. No pleural effusions or pneumothorax. Mediastinum: Mediastinal contours appear normal. Heart size is normal. Bones and chest wall: No suspicious bony lesions. Overlying soft tissues appear unremarkable. IMPRESSION: No acute cardiopulmonary processes evident. Dictated by: Dakotah Epperson M.D. on 11/03/2019 at 13:34 Approved by: Dakotah Epperson M.D. on 11/03/2019 at 13:35
[2019-11-03 13:43] LABS: Add Manual Diff / Slide Review NO; Basophils Absolute Auto 100 /uL (0-100); Basophils Percent Auto 1.2 % (0-2); Eosinophils Absolute Auto 300 /uL (0-450); Eosinophils Percent Auto 3.1 % (2-4); Hematocrit 39.6 % (41-53); Hemoglobin 13.8 g/dL (13.5-17.5); Lymphocytes Absolute Auto 1000 /uL (1100-4500); Lymphocytes Percent Auto 12.7 % (25-40); Mean Corpuscular HGB Conc 34.7 % (30-36); Mean Corpuscular Hemoglobin 30.8 PG (26-34); Mean Corpuscular Volume 88.9 fL (80-100); Monocytes Absolute Auto 800 /uL (0-900); Monocytes Percent Auto 10.3 % (3-14); Neutrophils Absolute Auto 5900 /uL (1500-7000); Neutrophils Percent Auto 72.7 % (50-75); Platelet Count 178 X10^3/uL (150-400); Red Blood Cell Count 4.46 X10^6/uL (4.5-5.9); White Blood Cell Count 8.2 X10^3/uL (4.5-11.0)
--- NOTE | 2019-11-03 13:50 | ED_ITS ---
HPI - General Adult <Heather Blanca PA-C - Last Filed: 11/03/19 21:49> General Chief complaint: Hypertension Stated complaint: sinus infection Time Seen by Provider: 11/03/19 13:49 Source: patient Mode of arrival: Ambulatory Limitations: no limitations History of Present Illness HPI narrative: This is a 79-year-old gentleman with a history of chronic headaches, dizziness, balance issues as well as chronic hypertension and fluctuating blood pressures who presents to the emergency department complaining of worsening headache and dizziness including balance issues yesterday that were worse than usual. He states that his symptoms have been going on for months or longer he has chronic headaches on and off that never seem to resolve, he has been having dizziness and balance issues as well with this, he states that yesterday morning he had a very severe headache that he woke up with and that was much worse than usual as if there was ?a knife being driven into the middle of my forehead? and it gradually resolved during the day. He still has a headache today however it is not as severe. He also says that yesterday he felt his balance issues were worse than normal. So for this reason he presented to the emergency department today. He states that he did have cataract surgery recently which improved his vision. He notes that he has been told by his PCP that his headaches could be the result of his high blood pressures and they were working together to try to get his blood pressure is better under control. He denies any recent falls or trauma. He denies any other symptoms including nausea, vomiting, diarrhea, chest pain, abdominal pain, vision changes, or any other symptoms. Onset (ago): month(s) (This is been gone for months if not longer, worsening in the last day) Location: head Radiation: non-radiation Severity: moderate Severity scale (1-10): 7 Quality: aching and dull Pain Consistency: intermittent Relieving factors: none Exacerbating factors: none Associated symptoms: denies other symptoms Treatments prior to arrival: none Related Data Home Medications Medication Instructions Recorded Confirmed abiraterone 500 mg tablet 1,000 mg PO QAM 12/03/18 11/07/19 leuprolide (3 month) 11.25 mg (3 11.25 mg IM [id number] 12/03/18 11/07/19 month) intramuscular syringe kit carvedilol 12.5 mg tablet 6.25 mg PO BID tab 10/01/19 11/07/19 potassium chloride 10 mEq 10 meq PO DAILY 10/01/19 11/07/19 tablet,extended release Previous Rx's Medication Instructions Recorded hydrocodone 10 mg-acetaminophen 1 tab PO Q4H PRN #1 tab 03/03/18 325 mg tablet olmesartan 40 mg tablet 40 mg PO DAILY #90 tab 07/14/19 fwxexvfqfm-lcqilrvuyjsav-smss 1 cap PO Q8H PRN #7 cap 11/03/19 [Fioricet] ketorolac 10 mg PO Q6H PRN #14 tab 11/07/19 Allergies Allergy/AdvReac Type Severity Reaction Status Date / Time lisinopril Allergy Intermediate angioedema Verified 11/07/19 10:20 clonidine AdvReac Verified 11/07/19 10:20 Review of Systems <Heather Blanca PA-C - Last Filed: 11/03/19 21:49> Review of Systems Narrative: GENERAL: Denies chills, fatigue, malaise, fever, sweats. HEENT: Endorses sinus pain in his forehead, denies ear pain, sore throat, difficulty swallowing, endorses dizziness with balance issues. RESPIRATORY: Denies dyspnea, cough, wheezing, hemoptysis, sputum. CARDIOVASCULAR: Denies chest pain, palpitations, orthopnea, edema, GASTROINTESTINAL: Denies nausea, vomiting, abdominal pain, diarrhea, constipation, melena. : Denies dysuria, frequency, incontinence, hematuria, urinary retention. MUSCULOSKELETAL: denies weakness, joint pain, or bony pain SKIN: Denies rash, skin lesions, or other NEUROLOGIC: Denies weakness, endorses headache, denies numbness, change in speech, confusion, seizures, incoordination. PSYCHIATRIC: No concerning psychosocial issues. 12 point review of systems is negative except for those stated above Patient History <Heather Blanca PA-C - Last Filed: 11/03/19 21:49> Medical History Essential hypertension (Chronic) Hyperlipidemia (Chronic) Peripheral vascular disease (Chronic) Prostate cancer (Resolved 2012) Vertigo (Chronic) Surgical History History of radical retropubic prostatectomy (Resolved 12/30/12) Family History Father Gastric cancer Mother Ruptured abdominal aortic aneurysm (AAA) Heart disease Arthritis Sister No problems noted. Sister Heart disease Sister Hepatitis C Son No problems noted. Daughter No problems noted. Daughter No problems noted. Daughter No problems noted. Grandfather Cancer Grandmother Cancer Grandfather Cancer Heart disease Grandmother Cancer Heart disease Social History Smoking Status: Current every day smoker alcohol intake: current (Socially) substance use type: does not use Smoking Status: Current every day smoker alcohol intake frequency: 0-2 drinks per day Substance Use Type: does not use Exam <Heather Blanca PA-C - Last Filed: 11/03/19 21:49> Narrative Exam Narrative: GENERAL: 79 year old patient appears stated age. Well-nourished, well-developed patient, in mild distress. HEAD: Atraumatic. Normocephalic. EYES: Pupils equal round and reactive. Extraocular motions intact. No scleral icterus. No injection or drainage. EOMs are intact ENT: Nose without bleeding, purulent drainage. Throat without erythema, tonsillar hypertrophy or exudate. Airway patent. NECK: Trachea midline. Non tender CARDIOVASCULAR: Regular rate and rhythm without murmurs, gallops, or rubs. RESPIRATORY: Clear to auscultation. Breath sounds equal bilaterally. No wheezes, rales, or rhonchi. GASTROINTESTINAL: Abdomen soft, non-tender, nondistended. EXTREMITIES: No edema or joint tenderness. BACK: Nontender without deformity or crepitance. No flank tenderness. NEURO: AOx3. Cranial nerves are intact. Sensation is intact, coordination is intact. Gait is grossly normal. SKIN: No rash or erythema of visible areas Initial Vital Signs Initial Vital Signs: Vital Signs Temperature 97 F L 11/03/19 13:15 Pulse Rate 72 11/03/19 13:15 Respiratory Rate 18 11/03/19 13:15 Blood Pressure 223/118 H 11/03/19 13:15 Pulse Oximetry 98 11/03/19 13:15 <Naima Valles DO - Last Filed: 11/08/19 07:25> Initial Vital Signs Initial Vital Signs: Vital Signs Temperature 97 F L 11/03/19 13:15 Pulse Rate 72 11/03/19 13:15 Respiratory Rate 18 11/03/19 13:15 Blood Pressure 223/118 H 11/03/19 13:15 Pulse Oximetry 98 11/03/19 13:15 Scores <GARFIELD Yuen Last Filed: 11/03/19 21:49> GCS Anderson coma scale eye opening: Spontaneous Anderson coma scale verbal response: Orientated [place] coma scale motor response: Obey commands Anderson coma scale total score: 15 Course <GARFIELD Yuen Last Filed: 11/03/19 21:49> Orders Ordered: ED Orders 11/03/19 13:25 XR chest 1V Stat EKG-12 Lead Stat 11/03/19 13:35 Complete Blood Count AUTO DIFF Stat Comprehensive Metabolic Panel Stat Lipase Stat Partial Thromboplastin Time Stat Prothrombin Time INR Stat Troponin & CK Cardiac Panel Stat 11/03/19 14:11 MR head/brain wo con Stat Vital Signs Vital signs: Vital Signs - 8 hr 11/03/19 14:00 11/03/19 14:15 11/03/19 14:27 Pulse Rate 74 74 83 Respiratory Rate 22 28 H 46 H Blood Pressure 178/91 H 177/105 H Pulse Oximetry 99 99 11/03/19 16:10 11/03/19 16:30 Pulse Rate 74 71 Respiratory Rate 13 13 Blood Pressure 186/90 H 187/88 H Pulse Oximetry 100 99 <Naima Valles DO - Last Filed: 11/08/19 07:25> Orders Ordered: ED Orders 11/03/19 13:25 XR chest 1V Stat EKG-12 Lead Stat 11/03/19 13:35 Complete Blood Count AUTO DIFF Stat Comprehensive Metabolic Panel Stat Lipase Stat Partial Thromboplastin Time Stat Prothrombin Time INR Stat Troponin & CK Cardiac Panel Stat 11/03/19 14:11 MR head/brain wo con Stat Vital Signs Vital signs: Vital Signs - 8 hr 11/03/19 14:00 11/03/19 14:15 11/03/19 14:27 Pulse Rate 74 74 83 Respiratory Rate 22 28 H 46 H Blood Pressure 178/91 H 177/105 H Pulse Oximetry 99 99 11/03/19 16:10 11/03/19 16:30 Pulse Rate 74 71 Respiratory Rate 13 13 Blood Pressure 186/90 H 187/88 H Pulse Oximetry 100 99 Medical Decision Making <Heather Blanca PA-C - Last Filed: 11/03/19 21:49> Differential Diagnosis Differential Diagnosis: migraine, tension headache, bleed, neuroma, mass Medical Records Medical records reviewed: Yes I reviewed the patient's medical records. Lab Data Lab results reviewed: Yes I reviewed the patient's lab results. Result diagrams: 11/03/19 13:35 11/03/19 13:35 Labs: Lab Results 11/03/19 11/03/19 11/03/19 Range/Units 13:35 13:35 13:35 WBC 8.2 (4.5-11.0) X10^3/uL RBC 4.46 L (4.5-5.9) X10^6/uL Hgb 13.8 (13.5-17.5) g/dL Hct 39.6 L (41-53) % MCV 88.9 (80-100) fL MCH 30.8 (26-34) PG MCHC 34.7 (30-36) % RDW 15.0 H (11.6-14.8) % Plt Count 178 (150-400) X10^3/uL Neut % (Auto) 72.7 (50-75) % Lymph % (Auto) 12.7 L (25-40) % [place] % (Auto) 10.3 (3-14) % Eos % (Auto) 3.1 (2-4) % Baso % (Auto) 1.2 (0-2) % Neut # (Auto) 5900 (8919-2119) /uL Lymph # (Auto) 1000 L (9131-7596) /uL [place] # (Auto) 800 (0-900) /uL Eos # (Auto) 300 (0-450) /uL Baso # (Auto) 100 (0-100) /uL PT 11.1 (10.1-12.7) SECONDS INR 1.0 (0.9-1.3) APTT 30 (26.4-36.2) SECONDS Sodium 139 (137-145) mmol/L Potassium 4.2 (3.4-5.1) mmol/L Chloride 106 (98-107) mmol/L Carbon Dioxide 27 (22-32) mmol/L BUN 11 (9-20) mg/dL Creatinine 0.73 (0.66-1.25) mg/dL Estimated GFR > 60.0 (>60) mL/min BUN/Creatinine Ratio 15.1 (6-22) Glucose 97 (80-110) mg/dL Calcium 10.0 (8.4-10.2) mg/dL Total Bilirubin 0.5 (0.2-1.3) mg/dL AST 27 (17-59) IU/L ALT 14 (<50) IU/L Alkaline Phosphatase 88 (38-126) U/L Total Creatine Kinase 36 L (55-170) U/L CK-MB (CK-2) TNP CK-MB (CK-2) Rel Index TNP Troponin I < 0.012 (0.01-0.034) ng/mL Total Protein 7.3 (6.3-8.2) g/dL Albumin 4.3 (3.5-5.0) g/dL Globulin 3.0 (1.7-4.1) g/dL Albumin/Globulin Ratio 1.4 (1.0-2.8) Lipase 198 (23-300) U/L Imaging Data Chest x-ray: Attestation: I personally reviewed and interpreted this imaging study as follows: Radiologist's Impression: [address] [place] [id number] XRay Report Signed Patient: Osorio Martin R#: [id number] : 3Acct:[id number] Age/Sex: 79 / MDate of Service: 11/03/19 Loc: ED Accession Number: [id number] Procedure: XR chest 1V Ordering Provider: Naima Valles D.O. PROCEDURE: XR CHEST 1V INDICATIONS: chest pain TECHNIQUE: One view of the chest was acquired. COMPARISON: [facility], , XR CHEST 1V, 09/25/2019, 17:13. FINDINGS: Surgical changes and devices: None. Lungs and pleura: Lungs are clear. No pleural effusions or pneumothorax. Mediastinum: Mediastinal contours appear normal. Heart size is normal. Bones and chest wall: No suspicious bony lesions. Overlying soft tissues appear unremarkable. IMPRESSION: No acute cardiopulmonary processes evident. Dictated by: Dakotah Epperson M.D. on 11/03/2019 at 13:34 Approved by: Dakotah Epperson M.D. on 11/03/2019 at 13:35 MR brain: Attestation: I personally reviewed and interpreted this imaging study as follows: Radiologist's Impression: [address] [place] [id number] Magnetic Resonance Report Signed Patient: Osorio Martin R#: [id number] : 3Acct:[id number] Age/Sex: 79 / MDate of Service: 11/03/19 Loc: ED Accession Number: [id number] Procedure: MR head/brain wo con Ordering Provider: Heather Blanca P.A-C PROCEDURE: MR HEAD/BRAIN WO CON INDICATIONS: acute worsening of chronic balance/ZEE/dizziness TECHNIQUE: Noncontrast axial T1 spin echo, axial T2 fast spin echo, sagittal and axial FLAIR, coronal T2 fast spin echo, axial gradient echo, axial diffusion and ADC through the brain. COMPARISON: [facility], , BRAIN WITHOUT CONTRAST, 01/24/2017, 14:49. FINDINGS: Image quality: Excellent. CSF Spaces: Basal cisterns are patent. No extra-axial fluid collections. Ventricles are normal in size and shape. Brain: No intracranial masses or hemorrhage. Landis/white matter interface is normal. Brainstem appears normal. Diffusion-weighted images demonstrate no acute ischemic insult. No chronic ischemic insults. Normal intravascular flow voids are present. Skull and face: Calvarium has normal marrow signal. Orbits appear normal. Sinuses: Sinuses and mastoids are clear. IMPRESSION: Mild microvascular atherosclerotic change in the deep white matter of each hemisphere but no sign of stroke or mass is found and no inflammatory changes are identified. Dictated by: Brandon Velazquez M.D. on 11/03/2019 at 16:04 Approved by: Brandon Velazquez M.D. on 11/03/2019 at 16:05 [facility] Narrative Medical decision making narrative: This is a 79-year-old gentleman with a history of chronic headaches, hypertension, coronary artery disease and chronic dizziness with balance issues who presents to the emergency department complaining of worsening balance yesterday and worsening headache yesterday. Differential diagnoses considered included hypertensive headache, migraine, electrolyte abnormality, brain mass, acoustic neuroma, SAH, bleed The patient's symptoms are chronic but worsening, and MRI was available on short notice, pursued MRI brain imaging rather than a CT. I felt that imaging was warranted as he has not had any brain imaging that I can see based on chart review and questioning in the last few years. His report of worsening headache as well as worsening balance issues yesterday is concerning although his symptoms seem much improved today, I do not have a very high suspicion for a SAH or brain bleed however it is important to rule this out. MR brain was negative for any acute intracranial abnormality or bleed, labs were grossly unremarkable, patient blood pressure remained elevated during his stay although improved significantly over his initial BP. He had a low-grade headache during his stay. He was discharged with advice to follow-up with his primary care, continue to work on blood pressure management as I suspect this may be connected to his chronic headaches. Emergency return precautions were provided, all questions were answered. <Naima Valles, DO - Last Filed: 11/08/19 07:25> Lab Data Labs: Lab Results 11/03/19 11/03/19 11/03/19 Range/Units 13:35 13:35 13:35 WBC 8.2 (4.5-11.0) X10^3/uL RBC 4.46 L (4.5-5.9) X10^6/uL Hgb 13.8 (13.5-17.5) g/dL Hct 39.6 L (41-53) % MCV 88.9 (80-100) fL MCH 30.8 (26-34) PG MCHC 34.7 (30-36) % RDW 15.0 H (11.6-14.8) % Plt Count 178 (150-400) X10^3/uL Neut % (Auto) 72.7 (50-75) % Lymph % (Auto) 12.7 L (25-40) % [place] % (Auto) 10.3 (3-14) % Eos % (Auto) 3.1 (2-4) % Baso % (Auto) 1.2 (0-2) % Neut # (Auto) 5900 (6678-1733) /uL Lymph # (Auto) 1000 L (0769-0740) /uL [place] # (Auto) 800 (0-900) /uL Eos # (Auto) 300 (0-450) /uL Baso # (Auto) 100 (0-100) /uL PT 11.1 (10.1-12.7) SECONDS INR 1.0 (0.9-1.3) APTT 30 (26.4-36.2) SECONDS Sodium 139 (137-145) mmol/L Potassium 4.2 (3.4-5.1) mmol/L Chloride 106 (98-107) mmol/L Carbon Dioxide 27 (22-32) mmol/L BUN 11 (9-20) mg/dL Creatinine 0.73 (0.66-1.25) mg/dL Estimated GFR > 60.0 (>60) mL/min BUN/Creatinine Ratio 15.1 (6-22) Glucose 97 (80-110) mg/dL Calcium 10.0 (8.4-10.2) mg/dL Total Bilirubin 0.5 (0.2-1.3) mg/dL AST 27 (17-59) IU/L ALT 14 (<50) IU/L Alkaline Phosphatase 88 (38-126) U/L Total Creatine Kinase 36 L (55-170) U/L CK-MB (CK-2) TNP CK-MB (CK-2) Rel Index TNP Troponin I < 0.012 (0.01-0.034) ng/mL Total Protein 7.3 (6.3-8.2) g/dL Albumin 4.3 (3.5-5.0) g/dL Globulin 3.0 (1.7-4.1) g/dL Albumin/Globulin Ratio 1.4 (1.0-2.8) Lipase 198 (23-300) U/L Discharge Plan Departure Patient Disposition: Home Clinical Impression: Headache Qualifiers: Headache type: unspecified Headache chronicity pattern: chronic headache Intractability: not intractable Qualified Code(s): R51 - Headache Hypertension Qualifiers: Hypertension type: unspecified Qualified Code(s): I10 - Essential (primary) hypertension Discharge Date/Time: 11/03/19 17:08 Activity Restrictions/Additional Instructions: Thank you for letting his be part of your care in the emergency department today. There is no evidence of an emergent or life threatening illness at this time, but follow up with your doctor in 1-2 days is recommended nonetheless to continue to rule out serious underlying causes of your symptoms. Please call the office for an appointment. Please return to the Emergency Department for any worsening or persistent symptoms. Please take medications as directed. As prescribed a medicine which he can use for bad headaches, please take only as directed, and it is E prescribed for [facility]. Your blood pressures continued to remain high while you were in the emergency department today, and I know you have been working with your primary care physician on adjusting her blood pressure medications, however I do think it is possible that your high blood pressures could be contributing to your headaches. And is definitely advisable to work on getting her blood pressure down to a more reasonable level consistently. The MRI scan that was done today did not show any acute abnormalities of your brain that would explain your headaches or your dizziness. That being said I strongly recommend you follow-up with your primary care physician and if they feel it is valuable or appropriate to refer you to someone such as a Neurology doctor they can do so, however I think getting her blood pressure is under control as the 1st step. If you have new or worsening symptoms please do not hesitate to seek medical care. Prescriptions: New lbqdbpaxan-takxivjaabzvy-wkra [Fioricet] 50-300-40 mg capsule 1 cap PO Q8H PRN (Reason: pain) Qty: 7 RF: 0 No Action hydrocodone-acetaminophen 10-325 mg tablet 1 tab PO Q4H PRN (Reason: pain) Qty: 1 RF: 0 olmesartan 40 mg tablet 40 mg PO DAILY Qty: 90 RF: 1 carvedilol 12.5 mg tablet 6.25 mg PO BID RF: 0 potassium chloride 10 mEq tablet extended release 10 meq PO DAILY RF: 0 Zytiga 500 mg tablet 1,000 mg PO QAM RF: 0 Lupron Depot (3 month) 11.25 mg syringe kit 11.25 mg IM [id number] RF: 0 ketorolac 10 mg tablet 10 mg PO Q6H PRN (Reason: pain) Qty: 14 RF: 0 Referrals: Osorio Anaya MD [Primary Care Provider] - <Naima Valles DO - Last Filed: 11/08/19 07:25> Cosign ED Attending Moustaphaature Attestation: I was immediately available in the depa rtment for consultation. Documentation has been reviewed. This case was not discussed with me despite being available in the department. I did not partake in medical decisions, I do not agree with plan of MRI unfortunately it was done.
[2019-11-03 13:55] LABS: Prothrombin Time 11.1 SECONDS (10.1-12.7)
[2019-11-03 13:57] LABS: PTT Partial Thromboplastin Tim 30 SECONDS (26.4-36.2)
[2019-11-03 14:06] LABS: Alanine Aminotransferase 14 IU/L (<50); Albumin 4.3 g/dL (3.5-5.0); Albumin Globulin Ratio 1.4 (1.0-2.8); Alkaline Phosphatase 88 U/L (38-126); Aspartate Aminotransferase 27 IU/L (17-59); BUN Creatinine Ratio 15.1 (6-22); Bilirubin Total 0.5 mg/dL (0.2-1.3); Blood Urea Nitrogen 11 mg/dL (9-20); Carbon Dioxide 27 mmol/L (22-32); Chloride 106 mmol/L (98-107); Creatine Kinase 36 U/L (55-170); Estimated Glomerular Filt Rate > 60.0 mL/min (>60); Glucose 97 mg/dL (80-110); HEMOLYSIS 29 (0-50); Lipase 198 U/L (23-300); Potassium 4.2 mmol/L (3.4-5.1); Sodium 139 mmol/L (137-145); Total Protein 7.3 g/dL (6.3-8.2)
--- NOTE | 2019-11-03 14:11 | DI.MRI.S_ITS ---
PROCEDURE: MR HEAD/BRAIN WO CON INDICATIONS: acute worsening of chronic balance/ZEE/dizziness TECHNIQUE: Noncontrast axial T1 spin echo, axial T2 fast spin echo, sagittal and axial FLAIR, coronal T2 fast spin echo, axial gradient echo, axial diffusion and ADC through the brain. COMPARISON: [facility], MR, BRAIN WITHOUT CONTRAST, 01/24/2017, 14:49. FINDINGS: Image quality: Excellent. CSF Spaces: Basal cisterns are patent. No extra-axial fluid collections. Ventricles are normal in size and shape. Brain: No intracranial masses or hemorrhage. [place]/white matter interface is normal. Brainstem appears normal. Diffusion-weighted images demonstrate no acute ischemic insult. No chronic ischemic insults. Normal intravascular flow voids are present. Skull and face: Calvarium has normal marrow signal. Orbits appear normal. Sinuses: Sinuses and mastoids are clear. IMPRESSION: Mild microvascular atherosclerotic change in the deep white matter of each hemisphere but no sign of stroke or mass is found and no inflammatory changes are identified. Dictated by: Brandon Velazquez M.D. on 11/03/2019 at 16:04 Approved by: Brandon Velazquez M.D. on 11/03/2019 at 16:05
[2019-11-03 14:17] LABS: Troponin I < 0.012 ng/mL (0.01-0.034)
== END 2019-11-03 17:08 | disposition home or self-care (01) ==
PROVIDERS: Emergency Medicine; Emergency Provider Student in an Organized Health Care Education/Training Program; PCP Student in an Organized Health Care Education/Training Program
DX: R51 Headache (principal); I10 Essential (primary) hypertension; I25.10 Atherosclerotic heart disease of native coronary artery without angina pectoris; R42 Dizziness and giddiness; R07.9 Chest pain, unspecified
CPT/HCPCS: 36415; 70551; 71045; 80053; 82550; 83690; 84484; 85025; 85610; 85730; 93005; 93010; 99284

== ENCOUNTER 2019-11-07 10:14 | Emergency (ER) | payer MEDICARE, SELFPAY ==
[2019-11-07 10:15] VITALS: BP 225/102; PULSE 78; RESP 14; TEMP 36.2; O2SAT 100; BMI 27.1
--- NOTE | 2019-11-07 10:16 | ED_ITS ---
HPI - Headache General Chief Complaint: Headache Stated Complaint: Major sinus headache Time Seen by Provider: 11/07/19 10:16 Source: patient Mode of arrival: Ambulatory Limitations: no limitations History of Present Illness HPI Narrative: 79-year-old male daily smoker with history of chronic headaches, hypertension presents with a chief complaint of an ongoing headache for many weeks to months. He states it is generalized in nature, about a 3/10 in severity and denies much in the way of provocation or palliation. He recently had an MRI for the evaluation of his chronic headaches which was unremarkable. He denies any dietary or medication change. He denies any recent injury. He denies any neurologic findings such as blurred vision, trouble speech or numbness, tingling or weakness of extremities. He states that he has tried nasal sprays which helped some as well as some other unknown [id number] medications. He denies chest pain, shortness of breath, abdominal pain nor nausea or vomiting. He normally takes his antihypertensives after breakfast but has not yet taken his carvedilol today. MD Complaint: headache Onset (ago): month(s) Onset description: gradual Location: diffuse Severity: moderate Severity scale (1-10): 3 Quality: aching, throbbing and similar to previous headaches Relieving factors: nothing Exacerbating factors: none Associated symptoms: none Treatments prior to arrival: acetaminophen, ibuprofen and migraine medication Related Data Home Medications Medication Instructions Recorded Confirmed abiraterone 500 mg tablet 1,000 mg PO QAM 12/03/18 11/07/19 leuprolide (3 month) 11.25 mg (3 11.25 mg IM [id number] 12/03/18 11/07/19 month) intramuscular syringe kit carvedilol 12.5 mg tablet 6.25 mg PO BID tab 10/01/19 11/07/19 potassium chloride 10 mEq 10 meq PO DAILY 10/01/19 11/07/19 tablet,extended release Previous Rx's Medication Instructions Recorded hydrocodone 10 mg-acetaminophen 1 tab PO Q4H PRN #1 tab 03/03/18 325 mg tablet olmesartan 40 mg tablet 40 mg PO DAILY #90 tab 07/14/19 dephiolifh-[id number]-[id number] 1 cap PO Q8H PRN #7 cap 11/03/19 [Fioricet] ketorolac 10 mg PO Q6H PRN #14 tab 11/07/19 Allergies Allergy/AdvReac Type Severity Reaction Status Date / Time lisinopril Allergy Intermediate angioedema Verified 11/07/19 10:20 clonidine AdvReac Verified 11/07/19 10:20 Review of Systems Constitutional Constitutional: Denies chills, Denies fatigue, Denies fever(s), Denies frequent falls, Reports headache(s), Denies lethargy and Denies weakness Eyes Eyes: Denies change in vision, Denies eye discharge, Denies irritation and Denies loss of vision ENT Ears, Nose, Mouth, and Throat: Denies change in voice, Denies dizziness, Reports headache(s), Denies neck pain, Denies sore throat and Denies throat swelling Cardiovascular Cardiovascular: Denies chest pain, Denies irregular heart rhythm, Denies lightheadedness, Denies palpitations, Denies dyspnea, Denies dyspnea on exertion and Denies orthopnea Respiratory Respiratory: Denies cough, Denies dyspnea, Denies dyspnea on exertion and Denies wheezing Gastrointestinal Gastrointestinal: Denies abdominal pain, Denies change in bowel habits, Denies diarrhea, Denies nausea and Denies vomiting Musculoskeletal Musculoskeletal: Denies neck pain and Denies numbness Integumentary/Breasts Skin/Breast: Denies pruritus, Denies erythema, Denies rash and Denies wounds Neurologic Neurologic: Denies behavioral changes, Denies confusion, Denies dizziness, Denies frequent falls, Reports headache(s), Denies loss of vision, Denies numbness and Denies weakness Psychiatric Psychiatric: Denies anxiety, Denies behavioral changes, Denies confusion, Denies depression, Denies homicidal ideation and Denies suicidal ideation Endocrine Endocrine: Denies fatigue, Denies flushing and Denies palpitations Hematologic/Lymphatic Hematologic/Lymphatic: Denies easy bruising Allergic/Immunologic Allergic/Immunologic: Denies urticaria, Denies throat swelling and Denies wheezing Patient History Medical History Essential hypertension (Chronic) Hyperlipidemia (Chronic) Peripheral vascular disease (Chronic) Prostate cancer (Resolved 2012) Vertigo (Chronic) Surgical History History of radical retropubic prostatectomy (Resolved 12/30/12) Family History Father Gastric cancer Mother Ruptured abdominal aortic aneurysm (AAA) Heart disease Arthritis Sister No problems noted. Sister Heart disease Sister Hepatitis C Son No problems noted. Daughter No problems noted. Daughter No problems noted. Daughter No problems noted. Grandfather Cancer Grandmother Cancer Grandfather Cancer Heart disease Grandmother Cancer Heart disease Social History Smoking Status: Current every day smoker alcohol intake: current (Socially) substance use type: does not use Smoking Status: Current every day smoker alcohol intake frequency: 0-2 drinks per day Substance Use Type: does not use Exam Narrative Exam Narrative: GENERAL: [79] year old patient appears stated age. Well- nourished, well-developed patient, in mild distress. HEAD: Atraumatic. Normocephalic. No tenderness to palpation over frontal sinuses, no change in symptoms as he leans forward EYES: Pupils equal round and reactive. Extraocular motions intact. No scleral icterus. No injection or drainage. ENT: Nose without bleeding, purulent drainage. Throat without erythema, tonsillar hypertrophy or exudate. Airway patent. NECK: Trachea midline. Non tender CARDIOVASCULAR: Regular rate and rhythm without murmurs, gallops, or rubs. RESPIRATORY: Clear to auscultation. Breath sounds equal bilaterally. No wheezes, rales, or rhonchi. GASTROINTESTINAL: Abdomen soft, non-tender, nondistended. EXTREMITIES: No edema or joint tenderness. BACK: Nontender without deformity or crepitance. No flank tenderness. NEURO: AOx3. SKIN: No rash or erythema of visible areas NIH Stroke Scale 1a. LOC: Patient is alert and keenly responsive (0) 1b. LOC Questions: Patient answers both LOC questions accurately (0) 1c. LOC Commands: Patient performs both tasks correctly (0) 2. Best Gaze: Normal (0) 3. Visual: No visual loss (0) 4. Facial palsy: Normal symmetrical movements (0) 5. Motor arm: No drift (0) 6. Motor leg: No drift (0) 7. Limb ataxia: Absent (0) 8. Sensory: Normal (0) 9. Best language: No aphasia; normal (0) 10. Dysarthria: Normal (0) 11. Extinction and inattention: No abnormality (0) NIHSS: 0 Initial Vital Signs Initial Vital Signs: Vital Signs Temperature 97.1 F L 11/07/19 10:15 Pulse Rate 78 11/07/19 10:15 Respiratory Rate 14 11/07/19 10:15 Blood Pressure 225/102 H 11/07/19 10:15 Pulse Oximetry 100 11/07/19 10:15 Course Course Course Narrative: Patient has near complete resolution of symptoms after the above-stated therapies. Orders Ordered: Discontinued Medications Carvedilol (Coreg) 6.25 mg PO NOW ONE Stop: 11/07/19 10:22 Last Admin: 11/07/19 10:30 Dose: 6.25 mg Documented by: ASHLEIGH Ketorolac Tromethamine (Toradol) 30 mg IM NOW ONE Stop: 11/07/19 10:22 Last Admin: 11/07/19 10:30 Dose: 30 mg Documented by: ASHLEIGH Vital Signs Vital signs: Vital Signs - 8 hr 11/07/19 10:15 11/07/19 10:30 11/07/19 11:00 Temperature 97.1 F L Pulse Rate 78 76 67 Respiratory Rate 14 Blood Pressure 225/102 H 225/102 H Pulse Oximetry 100 96 11/07/19 11:01 Temperature Pulse Rate 70 Respiratory Rate Blood Pressure 173/84 H Pulse Oximetry 97 MDM - Headache MDM Narrative Medical decision making narrative: Multiple etiologies for patient's symptoms considered including: [Hypertensive headache versus sinus infection versus other] Patient's symptoms improved or duration of stay with above-stated therapies. Findings and discharge diagnosis discussed with patient/family followed by verbalization of understanding Return precautions discussed with patient/family whom verbalize understanding. Discharge Plan Departure Patient Disposition: Home Clinical Impression: Headache Qualifiers: Headache type: unspecified Headache chronicity pattern: chronic headache Intractability: not intractable Qualified Code(s): R51 - Headache Instructions: DI for Headache Activity Restrictions/Additional Instructions: *You have been diagnosed with [chronic headache] *What to do: *Take medications as directed *Follow up with your primary care provider in 2-3 days, call for an appointment. Let them know you were seen in the Emergency Department and that we ask that you be seen in follow up *Return to ER if you should have any new, worsening or concerning symptoms Prescriptions: New ketorolac 10 mg tablet 10 mg PO Q6H PRN (Reason: pain) Qty: 14 RF: 0 No Action hydrocodone-acetaminophen 10-325 mg tablet 1 tab PO Q4H PRN (Reason: pain) Qty: 1 RF: 0 olmesartan 40 mg tablet 40 mg PO DAILY Qty: 90 RF: 1 carvedilol 12.5 mg tablet 6.25 mg PO BID RF: 0 potassium chloride 10 mEq tablet extended release 10 meq PO DAILY RF: 0 Zytiga 500 mg tablet 1,000 mg PO QAM RF: 0 Lupron Depot (3 month) 11.25 mg syringe kit 11.25 mg IM [id number] RF: 0 [id number]-[id number] [Fioricet] 50-300-40 mg capsule 1 cap PO Q8H PRN (Reason: pain) Qty: 7 RF: 0 Referrals: Osorio Anaya MD [Primary Care Provider] -
--- NOTE | 2019-11-07 10:25 | PC.NURSE ---
Pt had an MRI a few days ago
[2019-11-07 10:30] VITALS: BP 225/102; PULSE 76
[2019-11-07] MEDS: KETOROLAC 60 MG/2 ML VIAL 30 MG IM (10:30)
[2019-11-07] MEDS: carvediloL 6.25 MG TABLET PO (10:30)
[2019-11-07 11:00] VITALS: PULSE 67; O2SAT 96
[2019-11-07 11:01] VITALS: BP 173/84; PULSE 70; O2SAT 97
== END 2019-11-07 11:31 | disposition home or self-care (01) ==
PROVIDERS: Emergency Provider Emergency Medicine; PCP Student in an Organized Health Care Education/Training Program
DX: R51 Headache (principal); I10 Essential (primary) hypertension
CPT/HCPCS: 96372; 99283; J1885

== ENCOUNTER → 2019-11-10 09:46 | Outpatient (CLI) | payer MEDICARE, SELFPAY ==
--- NOTE | 2019-11-10 09:48 | DI.CT.S_ITS ---
PROCEDURE: CT SINUS SCREEN WO CON INDICATIONS: chronic headaches and sinus congestion TECHNIQUE: Noncontrast 3.0 mm axial images acquired from the frontal sinuses to the mid-sella, with coronal and sagittal reformats. For radiation dose reduction, the following was used: automated exposure control, adjustment of mA and/or kV according to patient size. COMPARISON: [facility], CT, HEAD WITHOUT CONTRAST, 01/24/2017, 11:51. [facility], CT, HEAD WITHOUT CONTRAST, 09/21/2015, 11:03. [facility], MR, MR HEAD/BRAIN WO CON, 11/03/2019, 14:54. FINDINGS: Image quality: Excellent. Maxillary Sinuses: No bony remodeling or destruction. Sinuses are clear. Ethmoid Air Cells: No bony remodeling or destruction. Sinuses are clear. Sphenoid Sinuses: No bony remodeling or destruction. Sinuses are clear. Frontal Sinuses: The left frontal sinuses poorly developed. No bony remodeling or destruction. Sinuses are clear. Ostiomeatal Complexes: Ostiomeatal complexes are patent. No Oziel cells. Miscellaneous: Visualized intra-orbital contents are normal. No veto bullosa or paradoxical turbinate curvature. There is mild rightward nasal septal deviation. Calcifications of the intracranial internal carotid arteries can be seen. IMPRESSION: No significant active paranasal sinus disease is seen. Mild rightward nasal septal deviation. Note is made of a poorly developed left frontal sinus. Dictated by: Reginaldo Riley M.D. on 11/10/2019 at 9:06 Approved by: Reginaldo Riley M.D. on 11/10/2019 at 9:09
== END ==
PROVIDERS: PCP Student in an Organized Health Care Education/Training Program; Referring Provider Physician Assistant; Visit Provider Physician Assistant
DX: R51 Headache (principal); R09.81 Nasal congestion; J34.2 Deviated nasal septum
CPT/HCPCS: 70486

== ENCOUNTER → 2019-11-24 08:41 | Outpatient (CLI) | payer MEDICARE, SELFPAY ==
[2019-11-24 10:17] LABS: Cholesterol 201 mg/dL (140-199); HDL Cholesterol 30 mg/dL (40-60); Triglycerides 401 mg/dL (35-150)
[2019-11-28 17:12] LABS: Renin Activity 0.441 ng/mL/hr (0.167-5.380)
== END ==
PROVIDERS: PCP Student in an Organized Health Care Education/Training Program; Referring Provider Internal Medicine Cardiovascular Disease; Visit Provider Internal Medicine Cardiovascular Disease
DX: I10 Essential (primary) hypertension (principal); E78.2 Mixed hyperlipidemia
CPT/HCPCS: 36415; 80061; 82088; 84244

== ENCOUNTER 2020-03-07 13:20 | Emergency (ER) | payer MEDICARE, SELFPAY ==
--- NOTE | 2020-03-07 13:22 | DI.RAD.S_ITS ---
PROCEDURE: XR CHEST 1V INDICATIONS: wheezing TECHNIQUE: One view of the chest was acquired. COMPARISON: [facility], CR, XR CHEST 1V, 11/03/2019, 14:10. FINDINGS: Surgical changes and devices: None. Lungs and pleura: Lungs are clear. No pleural effusions or pneumothorax. Mediastinum: Mediastinal contours appear normal. Heart size is normal. Bones and chest wall: No suspicious bony lesions. Overlying soft tissues appear unremarkable. IMPRESSION: No evidence acute pulmonary process. Dictated by: Ricco Bautista M.D. on 03/07/2020 at 14:03 Approved by: Ricco Bautista M.D. on 03/07/2020 at 14:04
[2020-03-07 13:23] VITALS: BP 129/64; PULSE 67; RESP 16; TEMP 36.4; O2SAT 98; BMI 26.3
--- NOTE | 2020-03-07 13:24 | ED.SYNCOPE ---
HPI - Syncope <Kasey EidMAX - Last Filed: 03/07/20 17:42> General Chief Complaint: Weakness Stated Complaint: near syncope Time Seen by Provider: 03/07/20 13:20 History of Present Illness HPI narrative: 79yo male with a history of CVA, HTN, and Prostate CA, presents to the ED via EMS for near syncopal episode. He [place], he stood up to leave and felt weak and lowered himself to the floor. Bystanders told EMS they thought he passed out but patient states that he remembers the whole thing. He states he has had issues with balance for the past few years, has had ongoing weakness for the past month. Patient states a few months ago he had his 3rd TIA. He denies any symptoms other than weakness at this time. Denies any cough, shortness of breath, chest pain, dizziness, vertigo, lightheadedness at this time, abdominal pain, nausea, vomiting, diarrhea, or any other concerns. He denies taking any blood thinners at this time. Denies hitting head. Patient stated approximately 3-4 weeks ago he was admitted to [facility] with a TIA, he has been weak since this incident. He has had follow-up test and has an appointment scheduled next week. He states his weakness has not worsened or improved since he has been admitted. Related Data Home Medications Medication Instructions Recorded Confirmed abiraterone 500 mg tablet 1,000 mg PO QAM 12/03/18 12/30/19 leuprolide (3 month) 11.25 mg (3 11.25 mg IM [id number] 12/03/18 12/30/19 month) intramuscular syringe kit carvedilol 12.5 mg tablet 6.25 mg PO BID tab 10/01/19 12/30/19 potassium chloride 10 mEq 10 meq PO DAILY 10/01/19 12/30/19 tablet,extended release amlodipine 5 mg tablet 5 mg PO DAILY 11/25/19 12/30/19 atorvastatin 40 mg tablet 40 mg PO DAILY 11/25/19 12/30/19 clopidogrel 75 mg tablet 75 mg PO DAILY 12/30/19 12/30/19 spironolactone 25 mg tablet 12.5 mg PO DAILY tab 12/30/19 12/30/19 Previous Rx's Medication Instructions Recorded hydrocodone 10 mg-acetaminophen 1 tab PO Q4H PRN #1 tab 03/03/18 325 mg tablet olmesartan 40 mg tablet 40 mg PO DAILY #90 tab 12/30/19 meclizine 25 mg tablet 25 mg PO DAILY #90 tab 01/06/20 Allergies Allergy/AdvReac Type Severity Reaction Status Date / Time lisinopril Allergy Intermediate angioedema Verified 12/30/19 08:45 clonidine AdvReac Verified 12/30/19 08:45 Review of Systems <MAX Ricketts - Last Filed: 03/07/20 17:42> Review of Systems Narrative: REVIEW OF SYSTEMS: GENERAL: Denies fever. HENT: No head trauma, hearing loss or sore throat. EYES: No loss of vision, double vision, eye pain, or irritation. CARDIOVASCULAR: No chest pain. Reports near syncope, see HPI. RESPIRATORY: No shortness of breath or cough. GASTROINTESTINAL: No nausea, vomiting, diarrhea, or constipation. MUSCULOSKELETAL: No pain, weakness, or deformities. INTEGUMENTARY: No rash, lesions, or pruritus. NEURO: No numbness, tingling, memory loss, or confusion. PSYCH: No behavior or mood changes. Patient History <MAX Ricketts - Last Filed: 03/07/20 17:42> Medical History Essential hypertension (Chronic) Hyperlipidemia (Chronic) Peripheral vascular disease (Chronic) Prostate cancer (Resolved 2012) Vertigo (Chronic) Surgical History History of radical retropubic prostatectomy (Resolved 12/30/12) Family History Father Gastric cancer Mother Ruptured abdominal aortic aneurysm (AAA) Heart disease Arthritis Sister No problems noted. Sister Heart disease Sister Hepatitis C Son No problems noted. Daughter No problems noted. Daughter No problems noted. Daughter No problems noted. Grandfather Cancer Grandmother Cancer Grandfather Cancer Heart disease Grandmother Cancer Heart disease Social History Smoking Status: Current every day smoker alcohol intake: current substance use type: does not use Smoking Status: Current every day smoker alcohol intake frequency: 0-2 drinks per day Substance Use Type: does not use Exam <Kasey Eid ENROLLMENT PROCESSOR - Last Filed: 03/07/20 17:42> Initial Vital Signs Initial Vital Signs: Vital Signs Temperature 97.6 F 03/07/20 13:23 Pulse Rate 67 03/07/20 13:23 Respiratory Rate 16 03/07/20 13:23 Blood Pressure 129/64 03/07/20 13:23 Pulse Oximetry 98 03/07/20 13:23 PHYSICAL EXAMINATION: GENERAL: Well groomed, alert, and cooperative. Answers questions promptly and appropriately. Vital signs noted. HENT: Normocephalic. Ear canals patent. Oral mucosa is pink and moist. EYES: PERRLA, EOMIs, conjunctiva pink, sclera white, no periorbital swelling. NECK: Full ROM, no midline or spinal tenderness. CARDIOVASCULAR: S1 and S2 sounds normal. Regular rate and rhythm, no murmurs, clicks, or bruits. No change in orthostatic vital signs. RESPIRATORY: Normal respiratory rate, trachea midline, airway patent. No stridor, nasal flaring or accessory muscle use. Lungs are clear in all lam without wheeze, rhonchi, or crackles. MUSCULOSKELETAL: Equal strength to upper and lower extremities. Normal gait and coordination. Equal tone and mass bilaterally. Equal strength bilaterally to upper and lower extremities. No spinal tenderness. EXTREMITIES: CMS intact. Moves all extremities. SKIN: Warm, dry, soft, appropriate color for ethnicity. No lesions, rashes, or wounds to visualized areas. NEURO: Alert and Oriented X 3. GCS: 15. Good coordination. No ataxia, or sensory deficits, or cognitive issues. Patient ambulates without any difficulty. Cranial Nerves: II: Visual lam grossly intact. III & IV & : EOMIs V: Able to open and close jaw. VII: Facial movements symetrical. Able to close eyelids tightly. VIII: Hearing grossly intact, adequate balance. X: Uvula pronation intact. XI: Patient is able to shrug shoulders. XII: Patient is able to stick out tongue and move it side to side. PSYCH: Appropriate affect and mood. <Boni Juarez DO - Last Filed: 03/07/20 17:43> Initial Vital Signs Initial Vital Signs: Vital Signs Temperature 97.6 F 03/07/20 13:23 Pulse Rate 67 03/07/20 13:23 Respiratory Rate 16 03/07/20 13:23 Blood Pressure 129/64 03/07/20 13:23 Pulse Oximetry 98 03/07/20 13:23 Scores <Kasey MAX Eid - Last Filed: 03/07/20 17:42> GCS [place] coma scale eye opening: Spontaneous [place] coma scale verbal response: Orientated [place] coma scale motor response: Obey commands [place] coma scale total score: 15 NIH Stroke Scale Level of Conciousness: Alert, keenly responsive Ask month/age: Answers both questions correctly. Open/close eyes, close hand: Performs both tasks correctly Best gaze horizontal: Normal Visual lam: No visual loss Facial palsy: Normal symetrical movement Left arm drift: No drift for full 10 sec Right arm drift: No drift for full 10 sec Left leg drift: No drift for full 5 sec Right leg drift: No drift for full 5 sec Limb ataxia: Absent Sensory on face/arms/legs: Normal, no sensory loss Best language: No aphasia, normal Dysarthria: Normal Extinction or inattention: No abnormality Total NIH Stroke scale score: 0 Course <MAX Ricketts - Last Filed: 03/07/20 17:42> Course Course Narrative: -[place] syncope risk score: -2, very low risk -Evangelista Richy Syncope rule: Low risk group 1432: Patient states he is feeling better, continues to feel weak which is similar to how he has felt the past 3 weeks since discharge from [facility] with a TIA. Patient states he is switching his care from [place] to [place] as he is working on moving up there. 1500: Patient up ambulating around without any signs of dizziness, seen by myself walking quickly, appears stable, no ataxia. Patient verbalized he was ready for discharge Orders Ordered: ED Orders 03/07/20 13:15 Complete Blood Count AUTO DIFF Stat Comprehensive Metabolic Panel Stat Troponin & CK Cardiac Panel Stat 03/07/20 13:21 EKG-12 Lead Stat 03/07/20 13:22 XR chest 1V Stat Discontinued Medications Sodium Chloride (Normal Saline 0.9%) 1,000 mls @ 500 mls/hr IV BOLUS ONE Stop: 03/07/20 15:20 Last Infusion: 03/07/20 15:07 Dose: 0 mls/hr Documented by: Admin: 03/07/20 13:39 Dose: 500 mls/hr Documented by: RICK Consultations Consultation #1: Patient staffed with Dr. Juarez, discussed test, test results, plan of care. Vital Signs Vital signs: Vital Signs - 8 hr 03/07/20 13:23 03/07/20 14:25 03/07/20 14:30 Temperature 97.6 F Pulse Rate 67 70 Pulse Rate [Orthostatic Lying] 62 Pulse Rate [Orthostatic Sitting] 70 Pulse Rate [Orthostatic Standing] Respiratory Rate 16 18 Blood Pressure 129/64 132/66 Blood Pressure [Orthostatic Lying] 132/66 Blood Pressure [Orthostatic Sitting] 115/58 L Blood Pressure [Orthostatic Standing] Pulse Oximetry 98 99 03/07/20 14:32 Temperature Pulse Rate Pulse Rate [Orthostatic Lying] Pulse Rate [Orthostatic Sitting] Pulse Rate [Orthostatic Standing] 76 Respiratory Rate Blood Pressure Blood Pressure [Orthostatic Lying] Blood Pressure [Orthostatic Sitting] Blood Pressure [Orthostatic Standing] 107/55 L Pulse Oximetry <Boni Juarez, DO - Last Filed: 03/07/20 17:43> Orders Ordered: ED Orders 03/07/20 13:15 Complete Blood Count AUTO DIFF Stat Comprehensive Metabolic Panel Stat Troponin & CK Cardiac Panel Stat 03/07/20 13:21 EKG-12 Lead Stat 03/07/20 13:22 XR chest 1V Stat Discontinued Medications Sodium Chloride (Normal Saline 0.9%) 1,000 mls @ 500 mls/hr IV BOLUS ONE Stop: 03/07/20 15:20 Last Infusion: 03/07/20 15:07 Dose: 0 mls/hr Documented by: Admin: 03/07/20 13:39 Dose: 500 mls/hr Documented by: RICK Vital Signs Vital signs: Vital Signs - 8 hr 03/07/20 13:23 03/07/20 14:25 03/07/20 14:30 Temperature 97.6 F Pulse Rate 67 70 Pulse Rate [Orthostatic Lying] 62 Pulse Rate [Orthostatic Sitting] 70 Pulse Rate [Orthostatic Standing] Respiratory Rate 16 18 Blood Pressure 129/64 132/66 Blood Pressure [Orthostatic Lying] 132/66 Blood Pressure [Orthostatic Sitting] 115/58 L Blood Pressure [Orthostatic Standing] Pulse Oximetry 98 99 03/07/20 14:32 Temperature Pulse Rate Pulse Rate [Orthostatic Lying] Pulse Rate [Orthostatic Sitting] Pulse Rate [Orthostatic Standing] 76 Respiratory Rate Blood Pressure Blood Pressure [Orthostatic Lying] Blood Pressure [Orthostatic Sitting] Blood Pressure [Orthostatic Standing] 107/55 L Pulse Oximetry MDM - Syncope <MAX Ricketts - Last Filed: 03/07/20 17:42> Medical Records Attestation: I reviewed the patient's medical records. Lab Data Attestation: I reviewed the patient's lab results. Result diagrams: 03/07/20 13:15 03/07/20 13:15 Labs: Lab Results 03/07/20 03/07/20 Range/Units 13:15 13:15 WBC 10.0 (4.5-11.0) X10^3/uL RBC 4.09 L (4.5-5.9) X10^6/uL Hgb 12.5 L (13.5-17.5) g/dL Hct 35.8 L (41-53) % MCV 87.5 (80-100) fL MCH 30.5 (26-34) PG MCHC 34.9 (30-36) % RDW 15.4 H (11.6-14.8) % Plt Count 206 (150-400) X10^3/uL Neut % (Auto) 76.7 H (50-75) % Lymph % (Auto) 8.3 L (25-40) % [place] % (Auto) 11.2 (3-14) % Eos % (Auto) 2.8 (2-4) % Baso % (Auto) 1.0 (0-2) % Neut # (Auto) 7700 H (1413-6455) /uL Lymph # (Auto) 800 L (5622-7756) /uL [place] # (Auto) 1100 H (0-900) /uL Eos # (Auto) 300 (0-450) /uL Baso # (Auto) 100 (0-100) /uL Sodium 138 (137-145) mmol/L Potassium 4.7 (3.4-5.1) mmol/L Chloride 107 (98-107) mmol/L Carbon Dioxide 25 (22-32) mmol/L BUN 24 H (9-20) mg/dL Creatinine 0.89 (0.66-1.25) mg/dL Estimated GFR > 60.0 (>60) mL/min BUN/Creatinine Ratio 27.0 H (6-22) Glucose 120 H (80-110) mg/dL Calcium 10.0 (8.4-10.2) mg/dL Total Bilirubin 0.8 (0.2-1.3) mg/dL AST 24 (17-59) IU/L ALT 19 (<50) IU/L Alkaline Phosphatase 86 (38-126) U/L Total Creatine Kinase 33 L (55-170) U/L CK-MB (CK-2) TNP CK-MB (CK-2) Rel Index TNP Troponin I < 0.012 (0.01-0.034) ng/mL Total Protein 7.2 (6.3-8.2) g/dL Albumin 4.2 (3.5-5.0) g/dL Globulin 3.0 (1.7-4.1) g/dL Albumin/Globulin Ratio 1.4 (1.0-2.8) Urine Dip Bedside Urine Glucose Negative Bedside Urine Bilirubin - Negative Bedside Urine Ketone - Negative Urine Specific [place] 1.020 Bedside Urine Occult Blood - Negative Bedside Urine pH 6.0 Bedside Urine Protein - Negative Bedside Urine Urobilinogen +/- 1mg Bedside Urine Nitrite - Negative Bedside Urine Leukocytes - Negative Esterase Imaging Data Chest x-ray: Radiologist's Impression: [address] [address] XRay Report Signed Patient: Osorio Martin R#: [id number] : 3Acct:[id number] Age/Sex: 79 / MDate of Service: 03/07/20 Loc: ED Accession Number: [id number] Procedure: XR chest 1V Ordering Provider: Kasey Eid PROCEDURE: XR CHEST 1V INDICATIONS: wheezing TECHNIQUE: One view of the chest was acquired. COMPARISON: [facility], , XR CHEST 1V, 11/03/2019, 14:10. FINDINGS: Surgical changes and devices: None. Lungs and pleura: Lungs are clear. No pleural effusions or pneumothorax. Mediastinum: Mediastinal contours appear normal. Heart size is normal. Bones and chest wall: No suspicious bony lesions. Overlying soft tissues appear unremarkable. IMPRESSION: No evidence acute pulmonary process. Dictated by: Ricco Bautista M.D. on 03/07/2020 at 14:03 Approved by: Ricco Bautista M.D. on 03/07/2020 at 14:04 ECG Data Interpretation: 1321: Sinus rhythm with PACs, atrial bigeminy (not present on EKG on 11/03/2019), rate 63, NV interval 192, QTC 419. No ST elevation or ST depression. No T-wave inversion. EKG also viewed by DR. Juarez per protocol. MDM Narrative Medical decision making narrative: 79yo male presents to the emergency department via EMS for near syncopal episode. I suspect patient's symptoms are most likely caused by positional hypotension and or vasovagal response as patient states he was we warm on this happen, he [place] up [place], and was able to lower himself to the floor without complete syncope. Less likely TIA or CVA as there is no neurological deficits, NIH score of 0. Less likely cardiac etiology given negative troponin, non remarkable EKG (other than atrial bigeminy but this would not contribute to syncopal episode), non-remarkable chest x-ray and lack of concerning symptoms such as chest pain or SOB. Less likely infectious given lack of white blood cell count, patient is non tachycardic, afebrile, urine is clean, and exam is benign which decreases suspicion of abdominal infections or pulmonary infections. Patient is able to ambulate quickly throughout the emergency department with any gait instabilities or feelings of syncope. Patient reported he felt better after hydration with fluids. He does report weakness in the past few weeks which has been ongoing since his past TIA approximately 3 weeks ago. He denies this worsening at any point, I suspect may be weakness is residual from past TIA. Patient is hemodynamically stable, no other indicators that would signify concerning etiology. Patient has a low risk [place] syncope score and his low wrist on the Dilley score. He was discharged with strict ED return precautions. He was encouraged to follow up with his PCP in the next week. Patient agreed to plan of care verbalized understanding. <Boni Juarez, DO - Last Filed: 03/07/20 17:43> Lab Data Labs: Lab Results 03/07/20 03/07/20 Range/Units 13:15 13:15 WBC 10.0 (4.5-11.0) X10^3/uL RBC 4.09 L (4.5-5.9) X10^6/uL Hgb 12.5 L (13.5-17.5) g/dL Hct 35.8 L (41-53) % MCV 87.5 (80-100) fL MCH 30.5 (26-34) PG MCHC 34.9 (30-36) % RDW 15.4 H (11.6-14.8) % Plt Count 206 (150-400) X10^3/uL Neut % (Auto) 76.7 H (50-75) % Lymph % (Auto) 8.3 L (25-40) % [place] % (Auto) 11.2 (3-14) % Eos % (Auto) 2.8 (2-4) % Baso % (Auto) 1.0 (0-2) % Neut # (Auto) 7700 H (7050-0040) /uL Lymph # (Auto) 800 L (0167-0454) /uL [place] # (Auto) 1100 H (0-900) /uL Eos # (Auto) 300 (0-450) /uL Baso # (Auto) 100 (0-100) /uL Sodium 138 (137-145) mmol/L Potassium 4.7 (3.4-5.1) mmol/L Chloride 107 (98-107) mmol/L Carbon Dioxide 25 (22-32) mmol/L BUN 24 H (9-20) mg/dL Creatinine 0.89 (0.66-1.25) mg/dL Estimated GFR > 60.0 (>60) mL/min BUN/Creatinine Ratio 27.0 H (6-22) Glucose 120 H (80-110) mg/dL Calcium 10.0 (8.4-10.2) mg/dL Total Bilirubin 0.8 (0.2-1.3) mg/dL AST 24 (17-59) IU/L ALT 19 (<50) IU/L Alkaline Phosphatase 86 (38-126) U/L Total Creatine Kinase 33 L (55-170) U/L CK-MB (CK-2) TNP CK-MB (CK-2) Rel Index TNP Troponin I < 0.012 (0.01-0.034) ng/mL Total Protein 7.2 (6.3-8.2) g/dL Albumin 4.2 (3.5-5.0) g/dL Globulin 3.0 (1.7-4.1) g/dL Albumin/Globulin Ratio 1.4 (1.0-2.8) Urine Dip Bedside Urine Glucose Negative Bedside Urine Bilirubin - Negative Bedside Urine Ketone - Negative Urine Specific [place] 1.020 Bedside Urine Occult Blood - Negative Bedside Urine pH 6.0 Bedside Urine Protein - Negative Bedside Urine Urobilinogen +/- 1mg Bedside Urine Nitrite - Negative Bedside Urine Leukocytes - Negative Esterase Discharge Plan Departure Patient Disposition: Home Clinical Impression: Postural dizziness Discharge Date/Time: 03/07/20 15:23 Instructions: DI for Dehydration -- Adult Activity Restrictions/Additional Instructions: Thank you for entrusting me with your care today. As discussed, your laboratory work, EKG, chest x-ray, and urinalysis are non-remarkable. I am unsure the exact cause of your near syncopal episode, symptoms this can be related to dehydration, increased temperature, and standing up too quickly. I do recommend calling your primary care provider in following up with them in the next week. Please return emergency department for any new or worsening symptoms such as limb weakness, chest pain, shortness of breath, high fevers, additional syncope, lightheadedness, or any other concerns. Prescriptions: No Action hydrocodone-acetaminophen 10-325 mg tablet 1 tab PO Q4H PRN (Reason: pain) Qty: 1 RF: 0 carvedilol 12.5 mg tablet 6.25 mg PO BID RF: 0 potassium chloride 10 mEq tablet extended release 10 meq PO DAILY RF: 0 amlodipine 5 mg tablet 5 mg PO DAILY RF: 0 atorvastatin 40 mg tablet 40 mg PO DAILY RF: 0 meclizine 25 mg tablet 25 mg PO DAILY Qty: 90 RF: 1 Zytiga 500 mg tablet 1,000 mg PO QAM RF: 0 Lupron Depot (3 month) 11.25 mg syringe kit 11.25 mg IM [id number] RF: 0 clopidogrel 75 mg tablet 75 mg PO DAILY RF: 0 spironolactone 25 mg tablet 12.5 mg PO DAILY RF: 0 olmesartan 40 mg tablet 40 mg PO DAILY Qty: 90 RF: 1 Referrals: Osorio Anaya MD [Primary Care Provider] - <Boni Juarez DO - Last Filed: 03/07/20 17:43> Cosign ED Attending Cosignature Attestation: Dr Juarez Co-Sign Statement: I was available for consultation during this patient's emergency department visit. This chart is signed by myself for administrative purposes only. I did not have direct contact with this patient during this visit. They were seen independently by the APC.
[2020-03-07 13:31] LABS: Add Manual Diff / Slide Review NO; Basophils Absolute Auto 100 /uL (0-100); Eosinophils Absolute Auto 300 /uL (0-450); Eosinophils Percent Auto 2.8 % (2-4); Hematocrit 35.8 % (41-53); Hemoglobin 12.5 g/dL (13.5-17.5); Lymphocytes Absolute Auto 800 /uL (1100-4500); Lymphocytes Percent Auto 8.3 % (25-40); Mean Corpuscular HGB Conc 34.9 % (30-36); Mean Corpuscular Hemoglobin 30.5 PG (26-34); Mean Corpuscular Volume 87.5 fL (80-100); Monocytes Absolute Auto 1100 /uL (0-900); Monocytes Percent Auto 11.2 % (3-14); Neutrophils Absolute Auto 7700 /uL (1500-7000); Neutrophils Percent Auto 76.7 % (50-75); Platelet Count 206 X10^3/uL (150-400); Red Blood Cell Count 4.09 X10^6/uL (4.5-5.9); Red Cell Distribution Width 15.4 % (11.6-14.8)
[2020-03-07 13:38] LABS: Alanine Aminotransferase 19 IU/L (<50); Albumin 4.2 g/dL (3.5-5.0); Albumin Globulin Ratio 1.4 (1.0-2.8); Alkaline Phosphatase 86 U/L (38-126); Aspartate Aminotransferase 24 IU/L (17-59); Bilirubin Total 0.8 mg/dL (0.2-1.3); Blood Urea Nitrogen 24 mg/dL (9-20); Carbon Dioxide 25 mmol/L (22-32); Chloride 107 mmol/L (98-107); Creatine Kinase 33 U/L (55-170); Estimated Glomerular Filt Rate > 60.0 mL/min (>60); Glucose 120 mg/dL (80-110); HEMOLYSIS 17 (0-50); Potassium 4.7 mmol/L (3.4-5.1); Sodium 138 mmol/L (137-145); Total Protein 7.2 g/dL (6.3-8.2)
[2020-03-07] MEDS: SODIUM CHLORIDE 0.9% 1,000 ML 500 ML IV (13:39)
[2020-03-07 13:50] LABS: Troponin I < 0.012 ng/mL (0.01-0.034)
[2020-03-07 14:25] VITALS: BP 132/66; PULSE 70; RESP 18; O2SAT 99
[2020-03-07 14:30] VITALS: BP 115/58; BP 132/66; PULSE 62; PULSE 70
[2020-03-07 14:32] VITALS: BP 107/55; PULSE 76
--- NOTE | 2020-03-07 14:40 | PC.NURSE ---
Ambulated patient per provider Hedlin request. Patient ambulated around department independently in no apparent distress. Denied SOB, chest pain, dizziness, or difficulty walking. Patient states feelings like he is back to his baseline.
== END 2020-03-07 15:23 | disposition home or self-care (01) ==
PROVIDERS: Emergency Provider Nurse Practitioner; Family Provider Student in an Organized Health Care Education/Training Program; PCP Student in an Organized Health Care Education/Training Program
DX: R42 Dizziness and giddiness (principal); R06.2 Wheezing; R55 Syncope and collapse
CPT/HCPCS: 36415; 71045; 80053; 81003; 82550; 84484; 85025; 93005; 96360; 99284

== ENCOUNTER → 2020-10-27 11:32 | Outpatient (ROUT) | payer MEDICARE, SELFPAY ==
[2020-10-27 11:59] LABS: Add Manual Diff / Slide Review NO; Basophils Absolute Auto 0 /uL (0-100); Basophils Percent Auto 0.1 % (0-2); Eosinophils Absolute Auto 0 /uL (0-450); Eosinophils Percent Auto 0.3 % (2-4); Hematocrit 46.2 % (41-53); Hemoglobin 15.2 g/dL (13.5-17.5); Lymphocytes Absolute Auto 700 /uL (1100-4500); Lymphocytes Percent Auto 5.7 % (25-40); Mean Corpuscular Hemoglobin 29.1 PG (26-34); Mean Corpuscular Volume 88.3 fL (80-100); Monocytes Absolute Auto 800 /uL (0-900); Monocytes Percent Auto 6.7 % (3-14); Neutrophils Absolute Auto 10100 /uL (1500-7000); Neutrophils Percent Auto 87.2 % (50-75); Platelet Count 121 X10^3/uL (150-400); Red Blood Cell Count 5.23 X10^6/uL (4.5-5.9); Red Cell Distribution Width 16.9 % (11.6-14.8); White Blood Cell Count 11.6 X10^3/uL (4.5-11.0)
[2020-10-27 12:21] LABS: BUN Creatinine Ratio 27.4 (6-22); Blood Urea Nitrogen 20 mg/dL (9-20); Calcium 9.8 mg/dL (8.4-10.2); Carbon Dioxide 28 mmol/L (22-32); Chloride 104 mmol/L (98-107); Estimated Glomerular Filt Rate > 60.0 mL/min (>60); Glucose 102 mg/dL (80-110); HEMOLYSIS < 15 (0-50); Potassium 4.2 mmol/L (3.4-5.1); Sodium 136 mmol/L (137-145)
== END ==
PROVIDERS: Family Provider Student in an Organized Health Care Education/Training Program; PCP Student in an Organized Health Care Education/Training Program; Visit Provider Family Medicine
DX: C61 Malignant neoplasm of prostate (principal)
CPT/HCPCS: 80048; 85025